=== PATIENT | male | born 2000 | race Caucasian/White ===

== ENCOUNTER 2025-03-02 20:00 | Emergency (ER) | payer OTHER, SELFPAY ==
[2025-03-02 20:01] VITALS: BP 150/82; PULSE 96; RESP 16; TEMP 36.6; O2SAT 100; BMI 28.3
--- OUTSIDE RECORDS SUMMARY | 2025-03-02 20:37 | XMS RPT_ITS | CCD ---
Author Organization [facility] Care Team Providers Care Office Communication Professor Name Role Phone Faizan GUSMAN.Evelyn PATHAK Primary Care Provider EVELYN SERRATO Attending Unavailable EVELYN SERRATO Primary Care Unavailable EVELYN SERRATO Attending Unavailable EVELYN SERRATO Primary Care Unavailable Papa Ace Attending Unavailable Care Physician, No Primary Primary Care Unava ilable Papa Ace Attending Unavailable Care Physician, No Primary Primary Care Unava ilable Care Physician, No Primary Primary Care Unava ilable Papa Ace Attending Unavailable Medications Current Medications Medication Drug Class(es) Dates Sig (Normalized) Sig (Original) escitalopram 20 mg oral tablet (3 sources) Serotonin Reuptake Inhibitor Start: 12-05-2022 End: 06-03-2023 take 1 tablet by mouth once daily escitalopram oxalate (LEXAPRO) 20 mg tablet Indications: Current mild episode of major depressive disorder without prior episode (HCC) , HALINA (generalized anxiety disorder) Take 1 tablet by mouth once daily. 30 tablet 5 12/05/2022 06/03/2023 Active Start: 10-31-2022 End: 04-29-2023 take 1 tablet by mouth once daily escitalopram oxalate (LEXAPRO) 10 mg tablet Indications: Current mild episode of major depressive disorder without prior episode (HCC) , HALINA (generalized anxiety disorder) Take 1 tablet by mouth once daily. 30 tablet 5 10/31/2022 12/05/2022 Discontinued Comment on above: Take 1 tablet by alexi th once daily. FLUoxetine 20 mg oral capsule (5 sources) Serotonin Reuptake Inhibitor Start: 08-23-2024 take 1 capsule by mouth once daily FLUoxetine (PROZAC) 20 mg capsule Indications: Current mild episode of major depressive disorder without prior episode (HCC) , HALINA (generalized anxiety disorder) Take 1 capsule by mouth once daily. 30 capsule 5 08/23/2024 Active Start: 05-13-2024 End: 08-23-2024 take 1 capsule by mouth once daily, then take 2 capsules by mouth once daily FLUoxetine (PROZAC) 10 mg capsule Indications: Current mild episode of major depressive disorder without prior episode (HCC) , HALINA (generalized anxiety disorder) Take 1 capsule by mouth once daily for 7 days, THEN 2 capsules once daily for 21 days. 49 capsule 1 06/30/2024 08/23/2024 Discontinued hydrOXYzine pamoate 25 mg oral capsule (2 sources) Antihistamine Start: 05-13-2024 End: 08-11-2024 take 1 capsule by mouth three times daily as needed for anxiety hydrOXYzine pamoate (VISTARIL) 25 mg capsule Indications: Current mild episode of major depressive disorder without prior episode (HCC) , HALINA (generalized anxiety disorder) Take 1 capsule by mouth three times a day as needed for anxiety. 45 capsule 2 05/13/2024 08/11/2024 Active lidocaine 40 mg/ml topical cream (1 source) Antiarrhythmic, Amide Local Anesthetic Start: 03-10-2023 End: 04-09-2023 lidocaine (LMX) 4 % cream Indications: Needle phobia Apply to affected area three times daily as needed. 5 g 0 03/10/2023 04/09/2023 Active Comment on above: Apply to affected ar ea three times daily as needed. Completed/Discontinued Medications Medication Drug Class(es) Dates Sig (Normalized) Sig (Original) ALPRAZolam 0.5 mg oral tablet (1 source) Benzodiazepine Start: 03-10-2023 End: 03-10-2023 ALPRAZolam (XANAX) 0.5 mg tablet Indications: Needle phobia Take 1 tablet by mouth one time only for 1 dose. Take 60 min prior to blood draw 1 tablet 0 03/10/2023 03/10/2023 Comment on above: Take 1 tablet by alexi one time only for 1 dose. Take 60 min prior to blood draw sertraline 25 mg oral tablet (1 source) Serotonin Reuptake Inhibitor Start: 01-30-2023 End: 03-10-2023 take 1 tablet by mouth once daily, then take 2 tablets by mouth once daily sertraline (ZOLOFT) 25 mg tablet Indications: Current mild episode of major depressive disorder without prior episode (HCC) , HALINA (generalized anxiety disorder) Take 1 tablet by mouth once daily for 7 days, THEN 2 tablets once daily for 21 days. 49 tablet 2 01/30/2023 03/10/2023 Discontinued (Side Effects) Comment on above: Take 1 tablet by alexi once daily for 7 days, THEN 2 tablets once daily for 21 days. Problems Problem Classification Problem Date Documented Da te Episodic/Chronic Anxiety disorders (16 sources) Generalized anxiety disorder; Translations: [Generalized anxiety disorder] Onset: 12-05-2022 Chronic Mood disorders (13 sources) Mild major depression, single episode; Translations: [Major depressive disorder, single episode, mild] Onset: 12-05-2022 Chronic Other screening for suspected conditions (not mental disorders or infectious disease) (1 source) Patient encounter status; Translations: [Encounter for screening for lipoid disorders] Episodic Other upper respiratory infections (1 source) Upper respiratory infection; Translations: [Acute upper respiratory infection, unspecified] Episodic Results Test Name Value Interpretation Reference Range Facil ity MR/BMS.BPon 11-15-2024 MR/BMS.BP [address], [address] [place] [address] OFFICE VISIT Date of Service: 11/15/24 MR#: [id number] Acct: [id number] Name: Norberto Schaeffer Rep #: [id number] : 2000 Provider: Dr. Papa Lee se, DO Age/Sex: 24/M Location: [facility].BP Status: Signed Intake BP Intake Visit Reasons: 2 M FU [facility] Medical History (Updated 11/15/24 @ 16:[address] Papa Ace DO) Tobacco use disorder Panic disorder HALINA (generalized anxiety disorder) HPI History of Present Illness History provided by: patient HPI: Norberto Schaeffer is a 24 year old male who presents today for follow up evaluation. Patient reports that he has been pretty good. Has been having been working on how much he has been drinking. Has r educed to drinking about once per week. Has split up with girlfriend 2-3 times since last appointment. Relationship is largely doing well at this point. Has not been utilizing hydroxyzine with good efficacy for when he is feeling more anxious. Sleep has been doing largely well. Does still feel like he has anxiety most days but is more manageable. Does ask about Wellbutrin as he is interested in quitting smoking which we discussed per the plan below. Review of Systems Constitutional Denies: fever(s), chills, change in weight or fatigue Eyes Denies: change in vision or blurry vision Ears, Nose, Mouth, Throat Denies: throat pain, neck pain or change in hearing Cardiovascular Denies: chest pain, palpitations or dyspnea Respiratory Reports: other (sharp chest pain occasionally from vaping); Denies: dyspnea, cough or wheezing Gastrointestinal Denies: abdominal pain, nausea, vomiting, diarrhea or constipation Genitourinary Denies: dysuria or urinary frequency Musculoskeletal Denies: back pain, neck pain, joint pain or muscle weakness Integumentary/Breast Denies: rash or new lesions Neurological Denies: headache(s), dizziness or confusion Endocrine Denies: fatigue or excessive sweating Hematologic/Lymphati c Denies: easy bruising or easy bleeding Allergic/Immunologic Denies: wheezing Exam Mental Status Exam - Psych Appearance adequately groomed Attitude pleasant Activity/Motor Behavior MSE activity/motor behavior finding no adventitious movements Speech regular rate, regular volume and regular prosody Mood OK Affect congruent Thought Process linear, logical and coherent Thought Content no delusions and no hallucinations Suicidal Ideation none Homicidal Ideation none Attention intact Concentration intact Sensorium/Orientatio n awake, alert and oriented x3 Memory/Cognition other (appropriate for stated age) Insight good Judgement good Assessment Plan Assessment Plan (1) HALINA (generalized anxiety disorder): Plan: - We will continue fluoxetine 20 mg every day we will consider titration at next appointment ??? Patient did have interest in utilizing Wellbutrin to help with mood symptoms as well as to help quit smoking. As anxiety has been improving with SSRI recommended that we try behavioral mechanisms first before adding a potentially stimulating medication and exacerbating anxiety symptoms. Patient is to update in the near future if still struggling to quit and we could consider utilizing smoking cessation medication (2) Panic disorder: Plan: - Has been doing better with use of hydroxyzine as needed (3) Tobacco use disorder: Plan: - interested in quitting vaping; see above regarding Wellbutrin Coding Level of Care Code Off vis,est,level 4 Diagnoses HALINA (generalized anxiety disorder) F41.1 Panic disorder F41.0 Tobacco use disorder F17.200 11/16/24 0627 Date Papa Ace DO Cosigner Signature: Date (if applicable) CC: Normal [facility] CNCOon 08-29-2024 CNCO Letter Text Normal [facility] CNPNon 08-29-2024 CNPN Telephone (BRIDGETT) NORBERTO SCHAEFFER ([id number]* 2 M Date Time Provider Department 08/29/24 EVELYN SERRATO During your visit today, we recorded the following information about you: Dolly Sutherland 08/29/2024 4:54 PM Signed No Show Documentation Norbertoron Schaeffer no showed for an appointment on 08/29/24 with Evelyn Serrato APRN.COMBINE INSPECTOR at 4:00 pm. He was scheduled for 2 mo f/u anxiety. I called and was unable to speak with the patient regarding his missed appointment. Norberto did not state the reason that he missed his appointment was because he did not answer phone call . Resources discussed/offered to patient: left message to reschedule No show determined to be fault of patient: Yes This is the patients first no show in the last 12 months. Patient was rescheduled for NA. Letter mailed : Yes Is this the Third or Fourth No Show? No Dolly Sutherland August 29, 2024 4:41 PM Allergies As of Date: 08/29/2024 (No Known Allergies) Date Reviewed: 07/03/2024 Reviewed by: Evelyn Serrato APRN.COMBINE INSPECTOR - Fully Assessed Reason for Visit: No Show [1558] Cmt: Pt no showed for appt on 08/29/24 Prescriptions as of 08/29/2024 - FLUoxetine (PROZAC) 20 mg capsule Take 1 capsule by mouth once daily. Problem List As Of Date 08/29/2024 Noted Resolved Current mild episode of major depressive disord*12/05/2022 HALINA (generalized anxiety disorder) [F41.1] 12/05/2022 Encounter Status:Closed by DOLLY SUTHERLAND VALARIE on 08/29/24 Normal [facility] MR/BMS.BPon 08-22-2024 MR/BMS.BP [address], [facility] [address] [place] [address] OFFICE VISIT Date of Service: 08/22/24 MR#: [id number] Acct: [id number] Name: Norberto Schaeffer Rep #: [id number] : 2000 Provider: Dr. Papa Lee se, DO Age/Sex: 24/M Location: [facility].BP Status: Signed Intake Vital Signs 08/22/24 16:54 Weight: 200 lb BP Intake Visit Reasons: anxiety Accompanied by: Self [facility] Medical History (Updated 08/22/24 @ 16:[address] Papa Ace DO) Panic disorder HALINA (generalized anxiety disorder) HPI History of Present Illness History provided by: patient Chief complaint: Anxiety HPI: Norberto Schaeffer is a 24 year old male who presents today for new patient evaluation. Patient presents today for a new patient evaluation secondary to depression and anxiety. Reports that he can't enjoy self out of house because he feels anxious. Can come along with physical symptoms like nausea and upset stomach. Can feel chest pain and feeling of impending doom intermittently. Currently taking 20 mg of fluoxetine and hydroxyzine 25 mg as needed. Does feel pretty sleepy when taking the hydroxyzine. Has been taking fluoxetine for about 4-5 months duration. Is coming up on 3 years with his current girlfriend. For the past 1.5 years feels like anxiety has been worsening. Reports to always having been a shy kid in school. Did recently have a breakup with his girlfriend, but have gotten back together. Admits to having panic attacks largely in social situations. Does drink fairly regularly. Sleep: tries to go to bed around 1030; up around 4-430 am for work Interest: able to find damien in things Guilt: denies Energy: fair Concentration: is good, did do poorly in school Appetite: is able to eat well Psychomotor: WNL Suicide: denies Memory: admits to some poor short term memory Anxiety: admits to having had high anxiety in the past Obsessions: admits to some intrusive thoughts Compulsions: denies explicit compulsive behaviors Tayler: denies any symptoms of tayler in the past PTSD: admits that he was bullied in school Father in December 2 years ago Psychosis: denies history of auditory or visual hallucinations, denies disorganized thoughts, denies disorganized speech Developmental History Developmental History: Siblings - admits to having a younger sister Born/Raised - grew up in [place] Education - [place], [place] Living Situation - lives in [place] Legal Issues - denies Employment - [employer]; services [employer] Psychiatric History Previous psychiatric treatment history: No Previous psychiatric diagnoses: anxiety,depression Previous psychiatric treatment programs: none Family Psychiatric History: Mom - possibly some form of mental health Dad - substance use disorder Suicidal Ideation Current: No Past: No History of suicide attempt: No Suicide Risk Assessment Suicide risk factors: depression Suicide protective factors: family support, social support and engaged in work Self Injurious Behavior Current: none Past: cutting Medication Trials Previous psychiatric medication trials: escitalopram - maybe felt worse Current/Previous Provider Psychiatrist: denies Therapist: saw a therapist at [facility] Other Substance Use History Nicotine- admits to vaping nicotine Alcohol- had been drinking too much per girlfriend, would drink nearly every day but has recently cut back, had been hiding how much he was drinking from girlfriend Marijuana- stopped smoking marijuana Stimulants- denies Opioids- denies Other- denies Review of Systems Constitutional Denies: fever(s), chills, change in weight or fatigue Eyes Denies: change in vision or blurry vision Ears, Nose, Mouth, Throat Denies: throat pain, neck pain or change in hearing Cardiovascular Denies: chest pain, palpitations or dyspnea Respiratory Reports: other (sharp chest pain occasionally from vaping); Denies: dyspnea, cough or wheezing Gastrointestinal Denies: abdominal pain, nausea, vomiting, diarrhea or constipation Genitourinary Denies: dysuria or urinary frequency Musculoskeletal Denies: back pain, neck pain, joint pain or muscle weakness Integumentary/Breast Denies: rash or new lesions Neurological Denies: headache(s), dizziness or confusion Endocrine Denies: fatigue or excessive sweating Hematologic/Lymphati c Denies: easy bruising or easy bleeding Allergic/Immunologic Denies: wheezing Exam Mental Status Exam - Psych Appearance unkempt Attitude pleasant Activity/Motor Behavior MSE activity/motor behavior finding no adventitious movements Speech regular rate, regular volume and regular prosody Mood anxious Affect congruent Thought Process linear, logical and coherent Thought Content no delusions and no hallucinations Suicidal Ideation (more content not included)... Normal [facility] 06-28-2024 [facility] Office Visit (BRIDGETT) OLESYA SCHAEFFERTA PEPPER ([id number]* 2 M Date Time Provider Department 06/28/24 4:00 PM EVELYN SERRATO During your visit today, we recorded the following information about you: Temperature Pulse Blood pressure Weight 98.6 degrees 80/minute 122/70 90.7 kg Height 1.88 m Evelyn Serrato APRN.ZO 07/03/2024 11:53 PM Signed Subjective [place] Kojojennyfer Schaeffer is a 24 year old male here today for follow-up depression, anxiety. I reviewed past medical, surgical, social, and family histories today and updated chart. Allergies, chronic medications, and supplements were also reviewed. HPI Having some conflict with relationship Has been with current partner for 3 years She is concerned about his drinking He drinks 1-2 times throughout the work week Drinks 11 % wine cooler 3-4 in one night Will be in a deep sleep He has hid empty containers from partner They have pets and he will leave dog out after he's passed out before He is motivated to quit alcohol completely He realizes he should not drink alcohol while on the depression medication Notices slower thought process after he's been drinking He is still going to work and getting work done He drinks to relieve stress Hasn't been using marijuana as much lately Currently on Prozac 20 mg once a day - feels like its helping overall, especially with the depression Does make him sleepy Takes it around bedtime Not currently in counseling but is thinking about starting it again PAST MEDICAL HISTORY Diagnosis Date Childhood asthma Depression Generalized anxiety disorder Syncope PAST SURGICAL HISTORY Procedure Laterality Date NONE ALLERGIES Patient has no known allergies. MEDICATIONS FLUoxetine (PROZAC) 10 mg capsule Take 1 capsule by mouth once daily for 7 days, THEN 2 capsules once daily for 21 days. hydrOXYzine pamoate (VISTARIL) 25 mg capsule Take 1 capsule by mouth three times a day as needed for anxiety. FAMILY HISTORY Problem Relation Age of Onset Diabetes Mother Drug abuse Father No Known Problems Sister Social History Tobacco Use Smoking status: Every Day Types: Cigarettes Smokeless tobacco: Never Substance Use Topics Alcohol use: Yes Comment: occ. Drug use: Yes Types: Marijuana Review of Systems Constitutional: Negative for appetite change, chills, fatigue, fever and unexpected weight change. HENT: Negative for congestion, ear pain, rhinorrhea and sore throat. Eyes: Negative for pain, discharge, itching and visual disturbance. Respiratory: Negative for cough, shortness of breath and wheezing. Cardiovascular: Negative for chest pain, palpitations and leg swelling. Gastrointestinal: Negative for abdominal pain, constipation, diarrhea, nausea and vomiting. Genitourinary: Negative for difficulty urinating. Musculoskeletal: Negative for arthralgias. Skin: Negative for rash. Neurological: Negative for dizziness, tremors, weakness and headaches. Psychiatric/Behavior al: Positive for dysphoric mood. Negative for sleep disturbance. The patient is nervous/anxious. Objective BP 122/70 Pulse 80 Temp 98.6 Ht 6' 2 (1.88m) Wt 200 lb (90.7kg) SpO2 99% BMI 25.67 kg/(m2). Physical Exam HENT: Head: Normocephalic and atraumatic. Eyes: Conjunctiva/sclera: Conjunctivae normal. Pupils: Pupils are equal, round, and reactive to light. Cardiovascular: Rate and Rhythm: Normal rate and regular rhythm. Pulses: Normal pulses. Heart sounds: Normal heart sounds. Pulmonary: Effort: Pulmonary effort is normal. Breath sounds: Normal breath sounds. Musculoskeletal: Cervical back: Normal range of motion and neck supple. Lymphadenopathy: Cervical: No cervical adenopathy. Skin: General: Skin is warm and dry. Neurological: General: No focal deficit present. Mental Status: He is alert and oriented to person, place, and time. Cranial Nerves: No cranial nerve deficit. Sensory: Sensation is intact. Motor: Motor function is intact. Coordination: Coordination is intact. Psychiatric: Attention and Perception: Attention and perception normal. Mood and Affect: Affect normal. Mood is depressed. Mood is not anxious. Affect is not labile or inappropriate. Speech: Speech normal. Behavior: Behavior normal. Behavior is not agitated. Thought Content: Thought content normal. Thought content does not include suicidal ideation. Cognition and Memory: Cognition normal. Judgment: Judgment normal. Judgment is not impulsive. 03/11/2023 05/17/2024 06/28/2024 PHQ-9 Score 5 6 6 (0-4) minimal depression, (5-9) mild depression, (10-14) moderate depression, (15-19) moderately severe depression, (20-27) severe depression 12/05/2022 03/11/2023 06/28/2024 HALINA - 7 SCORES Score 8 13 10 (0-4) minimal anxiety, (5-9) mild anxiety, (10-14) moderate anxiety, (15- (more content not included)... [facility] Office Visit (BRIDGETT) NORBERTO SCHAEFFER ([id number]* 2 M Date Time Provider Department 05/13/24 4:40 PM EVELYN SERRATO During your visit today, we recorded the following information about you: Temperature Pulse Blood pressure Weight 98 degrees 71/minute 126/76 92.1 kg Height 1.88 m Evelyn Serrato, ADOPTION WORKER.COMBINE INSPECTOR 05/16/2024 11:03 PM Signed Subjective Norberto Pepper Schaeffer is a 24 year old male here today for depression follow-up. I reviewed past medical, surgical, social, and family histories today and updated chart. Allergies, chronic medications, and supplements were also reviewed. HPI Anxiety and depression symptoms have worsened since his last visit Yesterday was driving to work and felt so dizzy thought he would pass out Harder to go out and do things Hard time being public and socializing with other Having panic attacks - chest gets heavy, SOB, hot, uneasy feeling On occasion Comes and goes Comes out of nowhere a lot of times Sleep - sleeping okay, not waking up at night, falls asleep okay This past week went to bed at 9:30, usually goes to bed at 10:30 [place] like didn't rest at all - usually happens if he goes to bed earlier He was on medication in the past - lexapro, then zoloft Made him feel slightly worse over time PAST MEDICAL HISTORY No date: Childhood asthma No date: Depression No date: Generalized anxiety disorder No date: Syncope PAST SURGICAL HISTORY No date: NONE ALLERGIES Patient has no known allergies. MEDICATIONS No prescriptions on file. FAMILY HISTORY Problem Relation Age of Onset Diabetes Mother Drug abuse Father No Known Problems Sister Social History Tobacco Use Smoking status: Every Day Types: Cigarettes Smokeless tobacco: Never Substance Use Topics Alcohol use: Yes Comment: occ. Drug use: Yes Types: Marijuana Review of Systems Constitutional: Negative for appetite change, chills, fatigue, fever and unexpected weight change. HENT: Negative for congestion, ear pain, rhinorrhea and sore throat. Eyes: Negative for pain, discharge, itching and visual disturbance. Respiratory: Negative for cough, shortness of breath and wheezing. Cardiovascular: Negative for chest pain, palpitations and leg swelling. Gastrointestinal: Negative for abdominal pain, constipation, diarrhea, nausea and vomiting. Genitourinary: Negative for difficulty urinating. Musculoskeletal: Negative for arthralgias. Skin: Negative for rash. Neurological: Negative for dizziness, tremors, weakness and headaches. Psychiatric/Behavior al: Positive for dysphoric mood. Negative for sleep disturbance. The patient is nervous/anxious. Objective BP 126/76 Pulse 71 Temp 98 Ht 6' 2 (1.88m) Wt 203 lb (92.1kg) SpO2 10% BMI 26.05 kg/(m2). Physical Exam HENT: Head: Normocephalic and atraumatic. Eyes: Conjunctiva/sclera: Conjunctivae normal. Pupils: Pupils are equal, round, and reactive to light. Cardiovascular: Rate and Rhythm: Normal rate and regular rhythm. Pulses: Normal pulses. Heart sounds: Normal heart sounds. No murmur heard. Pulmonary: Effort: Pulmonary effort is normal. No respiratory distress. Breath sounds: Normal breath sounds. Abdominal: General: Bowel sounds are normal. There is no distension. Palpations: Abdomen is soft. There is no mass. Tenderness: There is no abdominal tenderness. Musculoskeletal: General: No tenderness. Normal range of motion. Cervical back: Normal range of motion and neck supple. Lymphadenopathy: Cervical: No cervical adenopathy. Skin: General: Skin is warm and dry. Findings: No rash. Neurological: General: No focal deficit present. Mental Status: He is alert and oriented to person, place, and time. Cranial Nerves: No cranial nerve deficit. Sensory: Sensation is intact. Motor: Motor function is intact. Coordination: Coordination is intact. Coordination normal. Deep Tendon Reflexes: Reflexes are normal and symmetric. Psychiatric: Attention and Perception: Attention and perception normal. Mood and Affect: Affect normal. Mood is depressed. Mood is not anxious. Affect is not labile or inappropriate. Speech: Speech normal. Behavior: Behavior normal. Behavior is not agitated. Thought Content: Thought content normal. Thought content does not include suicidal ideation. Cognition and Memory: Cognition normal. Judgment: Judgment normal. Judgment is not impulsive. 12/05/2022 01/30/2023 03/11/2023 PHQ-9 Score 7 9 5 (0-4) minimal depression, (5-9) mild depression, (10-14) moderate depression, (15-19) moderately severe depression, (20-27) severe depression 10/31/2022 12/05/2022 03/11/2023 HALINA - 7 SCORES Score 14 8 13 (0-4) minimal anxiety, (5-9) mild anxiety, (10-14) moderate anxiety, (15-21) severe anxiety ASSESSMENT/PLAN: 1. Current mild episode of major d (more content not included)... Normal [facility] TONIE SARS-CoV-2 (COVID-19) RT-PCR, Qualitativeon 08-08-2020 SARS-CoV-2 (COVID-19) RT-PCR, Qualitative [id number] [facility] Comment on above: Order Comment: Is th is a pre-procedure screening test?->No Is this specimen being sent to an external lab?->No [id number]&Nasopharyngeal^\S\^Nose (source)&Nose (source) Performed By: #### E LRG2 #### [place] [address] [facility] SARS-CoV-2 (COVID-19) RT-PCR, Qualitativeon 08-06-2020 Date of Symptom Onset [id number] [facility] Comment on above: Order Comment: Is th is a pre-procedure screening test?->No Is this specimen being sent to an external lab?->No [id number]&Nasopharyngeal^\S\^Nose (source)&Nose (source) Performed By: #### E LRG2 #### [place] [address] Employed in Healthcare setting? No [facility] Comment on above: Order Comment: Is th is a pre-procedure screening test?->No Is this specimen being sent to an external lab?->No [id number]&Nasopharyngeal^\S\^Nose (source)&Nose (source) Performed By: #### E LRG2 #### [place] [address] First COVID-19 test? Yes [facility] Comment on above: Order Comment: Is th is a pre-procedure screening test?->No Is this specimen being sent to an external lab?->No [id number]&Nasopharyngeal^\S\^Nose (source)&Nose (source) Performed By: #### E LRG2 #### [place] [address] Hospitalized? No [facility] Comment on above: Order Comment: Is th is a pre-procedure screening test?->No Is this specimen being sent to an external lab?->No [id number]&Nasopharyngeal^\S\^Nose (source)&Nose (source) Performed By: #### E LRG2 #### [place] [address] ICU? No Normal [facility] Comment on above: Order Comment: Is th is a pre-procedure screening test?->No Is this specimen being sent to an external lab?->No [id number]&Nasopharyngeal^\S\^Nose (source)&Nose (source) Performed By: #### E LRG2 #### [place] [address] Resident in congrega care setting? No Normal [facility] Comment on above: Order Comment: Is th is a pre-procedure screening test?->No Is this specimen being sent to an external lab?->No [id number]&Nasopharyngeal^\S\^Nose (source)&Nose (source) Performed By: #### E LRG2 #### [place] [address] Symptomatic as defined by CDC? Yes Normal [facility] Comment on above: Order Comment: Is th is a pre-procedure screening test?->No Is this specimen being sent to an external lab?->No [id number]&Nasopharyngeal^\S\^Nose (source)&Nose (source) Performed By: #### E LRG2 #### [place] [address] Progress Noteon 08-06-2020 Computer Network Specialist Authentication Interface Message Text Patient ID: Norberto Schaeffer is a 20 y.o. male. His chief complaint(s) include: Nasal Congestion (congestion, sneezing x few days- needs note for work) Assessment 1. Cough 2. Rhinorrhea Plan Norberto was seen today for nasal congestion. Diagnoses and all orders for this visit: Cough - SARS-CoV-2 (COVID-19) RT-PCR, Qual. Rhinorrhea - SARS-CoV-2 (COVID-19) RT-PCR, Qual. COVID test sent. Will notify patient of the COVID-19 result when available. Norberto's phone number is [phone]. Quarantine until the test is back. Continue home care. Call with concerns or if more ill. Return for Well Visit and as needed. Subjective HPI Comments: Got sick 6 days ago. The next day he felt worse so called off from work. Works at [employer]. Went back to work Thurs /Fri and still felt a little sick but not bad. Past couple days feeling progressively better. Now feels great today but needs a doctor's note or COVID test to return to work. 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 Symptoms were stuffy nose, some sneezing, mild cough, SMALL, stomach ache. No N/V no fever. No diarrhea. No known exposure to COVID-19. No travel. Did have some loss of taste or smell three days ago, only for one day and now seems normal again. No ill exposures. He is unaccompanied. Nasal Congestion Primary Care Review of Systems Objective Vital Signs 08/06/20 1436 Temp: 36.2 C (97.1 F) TempSrc: Temporal Weight: 84.2 kg There is no height or weight on file to calculate BMI. Physical Exam Constitutional: He appears well. He is active. No distress. HENT: Head: Atraumatic. Ears: Right Ear: Tympanic membrane and external ear normal. Left Ear: Tympanic membrane and external ear normal. Nose: Nose normal. No nasal discharge. Mouth/Throat: Mucous membranes are moist. No pharynx erythema. No tonsillar exudate. Oropharynx is clear. Eyes: Conjunctivae are normal. Neck: Neck supple. Cardiovascular: Normal rate, regular rhythm, S1 normal and S2 normal. Heart murmur not heard. Pulmonary/Chest: Breath sounds normal. No respiratory distress. He has no wheezes. He has no rhonchi. He has no rales. Abdominal: Soft. Bowel sounds are normal. He exhibits no distension and no mass. There is no hepatosplenomegaly. There is no abdominal tenderness. Musculoskeletal: Cervical back: Neck supple. Lymphadenopathy: No right anterior cervical adenopathy present. No left anterior cervical adenopathy present. Neurological: He is alert. Skin: Skin is warm. Skin is not pale. Findings: No rash. Vitals reviewed: Temperature 36.2 C (97.1 F), temperature source Temporal, weight 84.2 kg. Normal [facility] Progress Noteon 09-09-2019 Computer Network Specialist Authentication Interface Message Text Norberto Schaeffer is a 19 y.o. male patient. Behavioral/Emotional Assessment w Score - PHQ-9 Performed by: Orin Lindo MD Authorized by: Orin Lindo MD PHQ-9 See PHQ9 Flowsheet Feeling down, depressed, irritable or hopeless: Not at all Little interest or pleasure in doing things: Not at all Trouble falling or staying sleep, or sleeping too much: Not at all Poor appetite, weight loss, or overeating: Not at all Feeling tired or having little energy: Not at all Feeling bad about yourself - or feeling that you are a failure, or have let yourself or your family down: Not at all Trouble concentrating on things, like school work, reading or watching TV: Several days Moving or speaking so slowly that other people could have noticed. Or the opposite - being so fidgety or restless that you were moving around a lot more than usual: Not at all Thoughts that you would be better off , or of hurting yourself in some way: Not at all In the past year have you felt depressed or sad most days, even if you felt OK sometimes?: No If you are experiencing any of the problems on this form, how difficult have these problems made it for you to do your work, take care of things at home or get along with other people?: Not difficult at all Has there been a time in the past month when you have had serious thoughts about ending your life?: No Have you ever, in your whole life, tried to kill yourself or made a suicide attempt?: No PHQ-9 Total Score: 1 Total Score Value: 0-4 No or Minimal Electronically signed by: Orin Lindo MD Normal [facility] Computer Network Specialist Authentication Interface Message Text Patient ID: oNrberto Schaeffer is a 19 y.o. male. His chief complaint(s) include: 19 YEAR WELL CHILD Assessment 1. Routine general medical examination at a health care facility 2. Acne vulgaris Plan Norberto was seen today for 19 year well child. Diagnoses and all orders for this visit: Routine general medical examination at a health care facility - Behavioral/Emotional Assessment w Score - PHQ-9 Acne vulgaris - benzoyl peroxide (BENZOYL PEROXIDE WASH) 5 % external liquid; Wash affected area twice daily. Return in about 1 year (around 09/09/2020) for well check. Normal growth and development. Vaccines UTD except flu and Men B, declined both. PHQ9 score 1. Reviewed healthy diet and exercise. Sexually active, STD screening offered and declined. Declined genital exam. Discussed briefly transition to adult care. Rx sent for acne wash and reviewed use and side effects. Subjective He is unaccompanied. 19 YEAR WELL CHILD Home: Norberto is permitted and able to make independent decisions. Norberto has no home risk identified. Education: Norberto is in 12th grade and is adjusting adequately. ([facility] and [facility] [employer] (welding lab), struggling with grades this year, but passed second quarter. 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 Eating: Norberto eats regular meals including fruits and vegetables. 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 Norberto performs less than 1 hour of physical activity daily (wants to start working out at [employer]). Drugs: Norberto does not use tobacco, does not use drugs, does not use alcohol and does not vape. Safety: Norberto has peer relationships free from violence and uses seat belt. Norberto does not use phone/text while driving. Sex: The patient has a sexual partner. The patient is interested in females. The patient has had sex. The patient states that their partner and them engage in vaginal sex. The patient has 1 current sexual partners. The patient has had 1 lifetime sexual partners. Typically, the patient uses condoms as current contraceptive method. The patient states that their last sexual encounter was 1 year ago. Condom used at last sexual encounter. The patient has not had an STD. The patient's partner has had an STD: no. STD screening offered and declined. Suicidality: Norberto has no suicidal ideation, has no homicidal ideation and has no mental health risk identified. Output Urine and Stool Pattern: Urine and Stool Pattern: Normal stool pattern, normal urine pattern. Sleep Sleeping Difficulty: no difficulty sleeping Hours of sleep at a time: 7 Teen Anticipatory Guidance The following anticipatory guidance was reviewed during the visit: Nutrition: limit junk food/fast food and soft drinks. Health: age appropriate sleep habits, self testicular exam, how to resist peer pressure to smoke, drink, use drugs, don't use tobacco/ alcohol/ drugs/ diet pills/ inhalants, contraception/practi ce safe sex/ use condoms, be responsible for attendance/ homework/ course selection and driving risks. Screenings Hyperlipidemia Concerns: Negative Hyperlipidemia Screen Concerns: no Hyperlipidemia Risk Factors and no BMI >95% Primary Care Review of Systems Objective Vital Signs 09/09/19 0902 BP: 117/58 Pulse: 71 Weight: 77.1 kg Height: 183.6 cm Body mass index is 22.87 kg/m . Physical Exam Constitutional: He appears well. He is active. No distress. HENT: Head: Atraumatic. Right Ear: Tympanic membrane and external ear normal. Left Ear: Tympanic membrane and external ear normal. Nose: Nose normal. Mouth/Throat: Mucous membranes are moist. Dentition is normal. Oropharynx is clear. Eyes: Conjunctivae and EOM are normal. No strabismus. Pupils are equal, round, and reactive to light. Neck: Normal range of motion. Neck supple. Thyroid normal. No neck adenopathy. Cardiovascular: Normal rate, regular rhythm, S1 normal and S2 normal. Pulses are palpable. Heart murmur not heard. Pulmonary/Chest: Breath sounds normal. No respiratory distress. Exhibits no deformity. Abdominal: Soft. Bowel sounds are normal. He exhibits no distension and no mass. There is no hepatosplenomegaly. There is no tenderness. Genitourinary: did not examine. Genitourinary Comments: Recommended genital exam and fabric worker foreman, patient declined genital exam today. Declines rashes, sores, testicular changes or lumps/bumps. Discussed regular self-testicular exams. Musculoskeletal: Normal range of motion. Back: He exhibits no scoliosis. Neurological: He is alert. He has normal strength. He exhibits normal muscle tone. Gait normal. Skin: Burn (healing burn from welding injury on R side of neck) noted. No rash noted. There is no pallor. Closed comodones (scattered on back and chest, mild on face/forehead). Skin is warm. Normal [facility] Vital Signs Date Time Vital Sign Value Performing Clinician Henry montoya 06-28-2024 15:54-0400 Body height 188 cm Evelyn Trill ADOPTION WORKER.COMBINE INSPECTOR Work Phone: [facility] 06-28-2024 15:54-0400 Body mass index (BMI) [Ratio] 25.68 kg/m2 Evelyn Trijordyn ADOPTION WORKER.COMBINE INSPECTOR Work Phone: [facility] 06-28-2024 15:54-0400 Body temperature 98.6 [degF] Evelyn Trill ADOPTION WORKER.COMBINE INSPECTOR Work Phone: [facility] 06-28-2024 15:54-0400 Body weight 90.72 kg Evelyn Trijordyn ADOPTION WORKER.COMBINE INSPECTOR Work Phone: [facility] 06-28-2024 15:54-0400 Diastolic blood pressure 70 mm[Hg] Evelyn Serrato ADOPTION WORKER.COMBINE INSPECTOR Work Phone: [facility] 06-28-2024 15:54-0400 Heart rate 80 /min Evelyn Serrato ADOPTION WORKER.COMBINE INSPECTOR Work Phone: [facility] 06-28-2024 15:54-0400 SaO2% (BldA) [Mass fraction] 99 % Evelyn Serrato ADOPTION WORKER.COMBINE INSPECTOR Work Phone: [facility] 06-28-2024 15:54-0400 Systolic blood pressure 122 mm[Hg] Evelyn Trijordyn ADOPTION WORKER.COMBINE INSPECTOR Work Phone: [facility] 05-13-2024 16:34-0400 Body height 188 cm Evelyn Serrato ADOPTION WORKER.COMBINE INSPECTOR Work Phone: [facility] 05-13-2024 16:34-0400 Body mass index (BMI) [Ratio] 26.06 kg/m2 Evelyn Trill ADOPTION WORKER.COMBINE INSPECTOR Work Phone: [facility] 05-13-2024 16:34-0400 Body temperature 98.01 [degF] Evelyn Trill ADOPTION WORKER.COMBINE INSPECTOR Work Phone: [facility] 05-13-2024 16:34-0400 Body weight 92.08 kg Evelyn Trill ADOPTION WORKER.COMBINE INSPECTOR Work Phone: [facility] 05-13-2024 16:34-0400 Diastolic blood pressure 76 mm[Hg] Evelyn Trill ADOPTION WORKER.COMBINE INSPECTOR Work Phone: [facility] 05-13-2024 16:34-0400 Heart rate 71 /min Evelyn Trill ADOPTION WORKER.COMBINE INSPECTOR Work Phone: [facility] 05-13-2024 16:34-0400 SaO2% (BldA) [Mass fraction] 10 % Evelyn Trill ADOPTION WORKER.COMBINE INSPECTOR Work Phone: [facility] 05-13-2024 16:34-0400 Systolic blood pressure 126 mm[Hg] Evelyn Trill ADOPTION WORKER.COMBINE INSPECTOR Work Phone: [facility] 03-10-2023 16:50-0400 Body height 188 cm Evelyn Trill ADOPTION WORKER.COMBINE INSPECTOR Work Phone: [facility] 03-10-2023 16:50-0400 Body temperature 98.01 [degF] Evelyn Trill ADOPTION WORKER.COMBINE INSPECTOR Work Phone: [facility] 03-10-2023 16:50-0400 Body weight 83.46 kg Evelyn Trill ADOPTION WORKER.COMBINE INSPECTOR Work Phone: [facility] 03-10-2023 16:50-0400 Diastolic blood pressure 60 mm[Hg] Evelyn Trill ADOPTION WORKER.COMBINE INSPECTOR Work Phone: [facility] 03-10-2023 16:50-0400 Heart rate 63 /min Evelyn Trill ADOPTION WORKER.COMBINE INSPECTOR Work Phone: [facility] 03-10-2023 16:50-0400 Respiratory rate 19 /min Evelyn Trill ADOPTION WORKER.COMBINE INSPECTOR Work Phone: [facility] 03-10-2023 16:50-0400 SaO2% (BldA) [Mass fraction] 99 % Evelyn Trill ADOPTION WORKER.COMBINE INSPECTOR Work Phone: [facility] 03-10-2023 16:50-0400 Systolic blood pressure 112 mm[Hg] Evelyn Trill ADOPTION WORKER.COMBINE INSPECTOR Work Phone: [facility] 12-05-2022 15:52-0400 Body height 188 cm Evelyn Trill ADOPTION WORKER.COMBINE INSPECTOR Work Phone: [facility] 12-05-2022 15:52-0400 Body temperature 98.01 [degF] Evelyn Trill ADOPTION WORKER.COMBINE INSPECTOR Work Phone: [facility] 12-05-2022 15:52-0400 Body weight 80.29 kg Evelyn Trill ADOPTION WORKER.COMBINE INSPECTOR Work Phone: [facility] 12-05-2022 15:52-0400 Diastolic blood pressure 60 mm[Hg] Evelyn Trill ADOPTION WORKER.COMBINE INSPECTOR Work Phone: [facility] 12-05-2022 15:52-0400 Heart rate 65 /min Evelyn Trill ADOPTION WORKER.COMBINE INSPECTOR Work Phone: [facility] 12-05-2022 15:52-0400 SaO2% (BldA) [Mass fraction] 99 % Evelyn Trill ADOPTION WORKER.COMBINE INSPECTOR Work Phone: [facility] 12-05-2022 15:52-0400 Systolic blood pressure 110 mm[Hg] Evelyn Trill ADOPTION WORKER.COMBINE INSPECTOR Work Phone: [facility] 10-31-2022 15:01-0500 Body height 188 cm Evelyn Trill ADOPTION WORKER.COMBINE INSPECTOR Work Phone: [facility] 10-31-2022 15:01-0500 Body temperature 98.49 [degF] Evelyn Trill ADOPTION WORKER.COMBINE INSPECTOR Work Phone: [facility] 10-31-2022 15:01-0500 Body weight 78.93 kg Evelyn Trill ADOPTION WORKER.COMBINE INSPECTOR Work Phone: [facility] 10-31-2022 15:01-0500 Diastolic blood pressure 70 mm[Hg] Evelyn Trill ADOPTION WORKER.COMBINE INSPECTOR Work Phone: [facility] 10-31-2022 15:01-0500 Heart rate 80 /min Evelyn Trill ADOPTION WORKER.COMBINE INSPECTOR Work Phone: [facility] 10-31-2022 15:01-0500 SaO2% (BldA) [Mass fraction] 98 % Evelyn Serrato APRN.CNP Work Phone: [facility] 10-31-2022 15:01-0500 Systolic blood pressure 120 mm[Hg] Evelyn Serrato APRN.CNP Work Phone: [facility] Encounters Encounter Date Encounter Type Care Provider Facility Start: 02-15-2025 ambulatory No Primary Car e Physician Facility:[facility] Start: 11-15-2024 End: 11-15-2024 ambulatory Papa L Seese Facility:[facility] Start: 08-29-2024 End: 08-29-2024 Telephone encounter Evelyn Serrato APRN.CNP Work Phone: [facility] Comment on above: No Show (Pt no showe d for appt on 08/29/24) Start: 08-22-2024 End: 08-22-2024 ambulatory Papa L Seese Facility:[facility] Start: 08-22-2024 End: 08-23-2024 Refill Evelyn Serrato APRN.CNP Work Phone: [facility] Comment on above: Refill Request Start: 06-28-2024 End: 06-28-2024 Patient encounter procedure Evelyn Serrato APRN.COMBINE INSPECTOR Work Phone: [facility] Comment on above: Current mild episode of major depressive disorder without prior episode (HCC) (Primary Dx); HALINA (generalized anxiety disorder) Start: 06-28-2024 End: 06-28-2024 ambulatory EVELYN SERRATO Facility:[facility] Start: 05-13-2024 End: 05-13-2024 Patient encounter procedure Evelyn Serrato APRN.COMBINE INSPECTOR Work Phone: [facility] Comment on above: Current mild episode of major depressive disorder without prior episode (HCC) (Primary Dx); HALINA (generalized anxiety disorder) Start: 05-13-2024 End: 05-13-2024 ambulatory EVELYN SERRATO Facility:[facility] Start: 03-10-2023 End: 03-10-2023 Patient encounter procedure Evelyn Serrato APRN.COMBINE INSPECTOR Work Phone: [facility] Comment on above: Current mild episode of major depressive disorder without prior episode (HCC) (Primary Dx); HALINA (generalized anxiety disorder); Screening for lipid disorders; Needle phobia Start: 12-05-2022 End: 12-05-2022 Patient encounter procedure Evelyn Serrato APRN.COMBINE INSPECTOR Work Phone: [facility] Comment on above: Current mild episode of major depressive disorder without prior episode (HCC) (Primary Dx); HALINA (generalized anxiety disorder) Start: 10-31-2022 End: 10-31-2022 Patient encounter procedure Evelyn Serrato APRN.COMBINE INSPECTOR Work Phone: [facility] Comment on above: Current mild episode of major depressive disorder without prior episode (HCC) (Primary Dx); HALINA (generalized anxiety disorder); Upper respiratory tract infection, unspecified type Plan of Treatment Date Care Activity Detail Author Start: 06-28-2025 Covid-19 Vaccine ( season) Covid-19 Vaccine ( season) [facility] Comment on above: Postponed from 05/15 (Declined at this time) Start: 05-13-2025 Meningococcal B Vacc ine: Consider Based On Risk (1 of 2 - Patient Seeks Protection) Meningococcal B Vaccine: Consider Based On Risk (1 of 2 - Patient Seeks Protection) [facility] Comment on above: Postponed from 04/20 (Declined at this time) Start: 05-13-2025 Pneumococcal vaccination Pneum ococcal Vaccine (1 of 2 - PCV) [facility] Comment on above: Postponed from 04/20 (Declined at this time) Postponed from 04/20 (Declined at this time) Start: 05-13-2025 Urine microalbumin profile DTaP,Tdap,Td Vaccine (7 - Td or Tdap) [facility] Comment on above: Postponed from 04/26 (Declined at this time) Start: 03-13-2025 Influenza vaccination Influenza Vacc ine (#1) [facility] Comment on above: Postponed from 05/15 (Declined at this time) Start: 08-29-2024 End: 08-29-2024 Patient encounter procedure 08/29/2024 4:00 PM EST Office Visit [facility] [address] [place] [address] Evelyn Serrato ADOPTION WORKER.COMBINE INSPECTOR [address], [place] [id number] 2 mth f/u depression and anxiety [facility] Comment on above: 2 mth f/u depression and anxiety Start: 06-28-2024 End: 06-28-2024 Patient encounter procedure 06/28/2024 4:00 PM EDT Office Visit [facility] [address] [place] [address] Evelyn Serrato, ADOPTION WORKER.COMBINE INSPECTOR [address], [place] [phone] for Depression, anxiety. [facility] Comment on above: for Depression, anxi ety. Start: 05-15-2024 Covid-19 Vaccine ( season) Covid-19 Vaccine ( season) [facility] Start: 05-15-2024 Influenza vaccination Influenza Vacc ine (#1) [facility] Start: 10-31-2023 COVID-19 VACCINE (#1) COVID-19 VACCI NE (#1) [facility] Comment on above: Postponed from 10/21 (Declined at this time) Start: 05-15-2023 Influenza vaccination INFLUENZ A (Season Ended) [facility] Start: 03-10-2023 End: 10-06-2023 CBC panel - Blood by Automated count CBC Lab Routine Current mild episode of major depressive disorder without prior episode (HCC) HALINA (generalized anxiety disorder) Expected: 03/10/2023, Expires: 10/06/2023 [facility] Work Phone: Comment on above: Expected: 03/10/2023 , Expires: 10/06/2023 Start: 03-10-2023 End: 10-06-2023 Comprehensive metabolic 2000 panel - Serum or Plasma COMP METABOLIC PANEL Lab Routine Current mild episode of major depressive disorder without prior episode (HCC) HALINA (generalized anxiety disorder) Expected: 03/10/2023, Expires: 10/06/2023 [facility] Work Phone: Comment on above: Expected: 03/10/2023 , Expires: 10/06/2023 Start: 03-10-2023 End: 10-06-2023 Lipid 1996 panel - Serum or Plasma LIPID PANEL BASIC Lab Routine Screening for lipid disorders Expected: 03/10/2023, Expires: 10/06/2023 [facility] Work Phone: Comment on above: Expected: 03/10/2023 , Expires: 10/06/2023 Start: 03-10-2023 End: 10-06-2023 Thyrotropin [Units/volume] in Serum or Plasma TSH BLD Lab Routine Current mild episode of major depressive disorder without prior episode (HCC) HALINA (generalized anxiety disorder) Expected: 03/10/2023, Expires: 10/06/2023 [facility] Work Phone: Comment on above: Expected: 03/10/2023 , Expires: 10/06/2023 Start: 10-31-2022 End: 12-31-2022 25-hydroxyvitamin D3 [Mass/volume] in Serum or Plasma VITAMIN D 25 HYDROXY Lab Routine Current mild episode of major depressive disorder without prior episode (HCC) Expected: 10/31/2022, Expires: 12/31/2022 [facility] Work Phone: Comment on above: Expected: 10/31/2022 , Expires: 12/31/2022 Start: 10-31-2022 End: 12-31-2022 CBC panel - Blood by Automated count CBC Lab Routine Current mild episode of major depressive disorder without prior episode (HCC) HALINA (generalized anxiety disorder) Expected: 10/31/2022, Expires: 12/31/2022 [facility] Work Phone: Comment on above: Expected: 10/31/2022 , Expires: 12/31/2022 Start: 10-31-2022 End: 12-31-2022 Comprehensive metabolic 2000 panel - Serum or Plasma COMP METABOLIC PANEL Lab Routine Current mild episode of major depressive disorder without prior episode (HCC) HALINA (generalized anxiety disorder) Expected: 10/31/2022, Expires: 12/31/2022 [facility] Work Phone: Comment on above: Expected: 10/31/2022 , Expires: 12/31/2022 Start: 10-31-2022 End: 12-31-2022 Thyrotropin [Units/volume] in Serum or Plasma TSH BLD Lab Routine Current mild episode of major depressive disorder without prior episode (HCC) HALINA (generalized anxiety disorder) Expected: 10/31/2022, Expires: 12/31/2022 [facility] Work Phone: Comment on above: Expected: 10/31/2022 , Expires: 12/31/2022 Start: 05-15-2022 Influenza vaccination INFLUENZA (#1) [facility] Start: 2020 Urine microalbumin profile DTAP,TDAP,TD (1 - Tdap) [facility] Start: 2015 PEDS TO ADULT TRANSI TION ANNUAL ASSESSMENT PEDS TO ADULT TRANSITION ANNUAL ASSESSMENT [facility] Start: 2013 PEDS TO ADULT TRANSI TION INITIAL DISCUSSION PEDS TO ADULT TRANSITION INITIAL DISCUSSION [facility] Start: 2012 HPV VACCINE (1 - Mal e 2-dose series) HPV VACCINE (1 - Male 2-dose series) [facility] Start: 2011 MENINGOCOCCAL B: Consider based on risk (1 of 2 - Risk Bexsero 2-dose series) MENINGOCOCCAL B: Consider based on risk (1 of 2 - Risk Bexsero 2-dose series) [facility] Start: 2010 HPV VACCINE (1 - Mal e 2-dose series) HPV VACCINE (1 - Male 2-dose series) [facility] Start: 2007 PNEUMOCOCCAL (1 - PCV) PNEUMOCOCCAL (1 - PCV) [facility] Start: 2001 HEPATITIS B (1 of 3 - 3-dose series) HEPATITIS B (1 of 3 - 3-dose series) [facility] Payers Date Payer Category Payer Self-pay 2024 Unknown [employer] PPO [id number] 2024-Present [phone] [address] [place] [address] PPO [id number] 2024 Unknown [id number] 2019 Medicaid [id number] Unknown [id number] Unknown [id number] Unknown [id number] Social History Date Type Detail Facility Start: [facility]-31[facility]22 [facility] History of tobacco use Cigarette Smoker [facility] Start: 10-31-2022 Tobacco use and exposure Smoke less tobacco non-user [facility] Start: 11-06-2022 End: 07-03-2024 Alcohol intake Current drinker of alcohol (finding) [facility] Start: 10-31-2022 Alcohol Comment occ. [facility] Start: 2001 Sex Assigned At Not on file [facility] Start: 01-30-2023 End: 05-16-2024 History of Social function [facility] Start: 01-30-2023 End: 05-16-2024 Tobacco use panel [facility] Adult Depression Scr eening Assessment 4 [facility] Clinical Notes 10-31-2022 to 08-29-2024 Telephone Encounter - Dolly Sutherland - 08/29/2024 4:39 PM ESTTelephone Encounter - Dolly Sutherland - 08/29/2024 4:39 PM ESTTelephone Encounter - Greta Llamas MA - 08/22/2024 2:11 PM EST Note Date & Type Note Facility 08-29-2024 Telephone encount er Note No Show Documentation Norberto Schaeffer no showed for an appointment on 08/29/24 with Evelyn Serrato APRN.CNP at 4:00 pm. He was scheduled for 2 mo f/u anxiety. I called and was unable to speak with the patient regarding his missed appointment. Norberto did not state the reason that he missed his appointment was because he did not answer phone call . Resources discussed/offered to patient: left message to reschedule No show determined to be fault of patient: Yes This is the patients first no show in the last 12 months. Patient was rescheduled for NA. Letter mailed : Yes Is this the Third or Fourth No Show? No Dolly Sutherland August 29, 2024 4:41 PM [facility] 08-29-2024 Miscellaneous Notes Formattin g of this note might be different from the original. No Show Documentation Norberto Schaeffer no showed for an appointment on 08/29/24 with Evelyn Serrato APRN.CNP at 4:00 pm. He was scheduled for 2 mo f/u anxiety. I called and was unable to speak with the patient regarding his missed appointment. Norberto did not state the reason that he missed his appointment was because he did not answer phone call . Resources discussed/offered to patient: left message to reschedule No show determined to be fault of patient: Yes This is the patients first no show in the last 12 months. Patient was rescheduled for NA. Letter mailed : Yes Is this the Third or Fourth No Show? No Dolly Sutherland August 29, 2024 4:41 PM documented in this encounter [facility] 08-22-2024 Telephone encount er Note pharmacy electronically requesting refills as follows: Last seen 06/28/24 . Last refill 06/30/24 . Requested Prescriptions Pending Prescriptions Disp Refills FLUoxetine (PROZAC) 10 mg capsule [Pharmacy Med Name: fluoxetine 10 mg capsule] 49 capsule 1 Sig: TAKE 1 CAPSULE BY MOUTH ONCE DAILY FOR 7 DAYS THEN TAKE 2 CAPSULES BY MOUTH ONCE DAILY FOR 21 DAYS Please review and advise. Greta Llamas MA [facility] 08-22-2024 Miscellaneous Notes Formattin g of this note is different from the original. pharmacy electronically requesting refills as follows: Last seen 06/28/24 . Last refill 06/30/24 . Requested Prescriptions Pending Prescriptions Disp Refills FLUoxetine (PROZAC) 10 mg capsule [Pharmacy Med Name: fluoxetine 10 mg capsule] 49 capsule 1 Sig: TAKE 1 CAPSULE BY MOUTH ONCE DAILY FOR 7 DAYS THEN TAKE 2 CAPSULES BY MOUTH ONCE DAILY FOR 21 DAYS Please review and advise. Greta Llamas MA documented in this encounter [facility] 06-28-2024 Note HNO ID: [id number] Author: EVELYN SERRATO APRN.COMBINE INSPECTOR Service: ? Author Type: Nurse Practitioner Type: Progress Notes Filed: 07/03/2024 23:53 Note Text: [facility] Norberto Pepper Schaeffer is a 24 year old male here today for follow-up depression, anxiety. I reviewed past medical, surgical, social, and family histories today and updated chart. Allergies, chronic medications, and supplements were also reviewed. HPI Having some conflict with relationship Has been with current partner for 3 years She is concerned about his drinking He drinks 1-2 times throughout the work week Drinks 11 % wine cooler 3-4 in one night Will be in a deep sleep He has hid empty containers from partner They have pets and he will leave dog out after he's passed out before He is motivated to quit alcohol completely He realizes he should not drink alcohol while on the depression medication Notices slower thought process after he's been drinking He is still going to work and getting work done He drinks to relieve stress Hasn't been using marijuana as much lately Currently on Prozac 20 mg once a day - feels like its helping overall, especially with the depression Does make him sleepy Takes it around bedtime Not currently in counseling but is thinking about starting it again PAST MEDICAL HISTORY Diagnosis Date Childhood asthma Depression Generalized anxiety disorder Syncope PAST SURGICAL HISTORY Procedure Laterality Date NONE ALLERGIES Patient has no known allergies. MEDICATIONS FLUoxetine (PROZAC) 10 mg capsule Take 1 capsule by mouth once daily for 7 days, THEN 2 capsules once daily for 21 days. hydrOXYzine pamoate (VISTARIL) 25 mg capsule Take 1 capsule by mouth three times a day as needed for anxiety. FAMILY HISTORY Problem Relation Age of Onset Diabetes Mother Drug abuse Father No Known Problems Sister Social History Tobacco Use Smoking status: Every Day Types: Cigarettes Smokeless tobacco: Never Substance Use Topics Alcohol use: Yes Comment: occ. Drug use: Yes Types: Marijuana Review of Systems Constitutional: Negative for appetite change, chills, fatigue, fever and unexpected weight change. HENT: Negative for congestion, ear pain, rhinorrhea and sore throat. Eyes: Negative for pain, discharge, itching and visual disturbance. Respiratory: Negative for cough, shortness of breath and wheezing. Cardiovascular: Negative for chest pain, palpitations and leg swelling. Gastrointestinal: Negative for abdominal pain, constipation, diarrhea, nausea and vomiting. Genitourinary: Negative for difficulty urinating. Musculoskeletal: Negative for arthralgias. Skin: Negative for rash. Neurological: Negative for dizziness, tremors, weakness and headaches. Psychiatric/Behavioral: Positive for dysphoric mood. Negative for sleep disturbance. The patient is nervous/anxious. Objective BP 122/70 Pulse 80 Temp 98.6 Ht 6' 2 (1.88m) Wt 200 lb (90.7kg) SpO2 99% BMI 25.67 kg/(m2). Physical Exam HENT: Head: Normocephalic and atraumatic. Eyes: Conjunctiva/sclera: Conjunctivae normal. Pupils: Pupils are equal, round, and reactive to light. Cardiovascular: Rate and Rhythm: Normal rate and regular rhythm. Pulses: Normal pulses. Heart sounds: Normal heart sounds. Pulmonary: Effort: Pulmonary effort is normal. Breath sounds: Normal breath sounds. Musculoskeletal: Cervical back: Normal range of motion and neck supple. Lymphadenopathy: Cervical: No cervical adenopathy. Skin: General: Skin is warm and dry. Neurological: General: No focal deficit present. Mental Status: He is alert and oriented to person, place, and time. Cranial Nerves: No cranial nerve deficit. Sensory: Sensation is intact. Motor: Motor function is intact. Coordination: Coordination is intact. Psychiatric: Attention and Perception: Attention and perception normal. Mood and Affect: Affect normal. Mood is depressed. Mood is not anxious. Affect is not labile or inappropriate. Speech: Speech normal. Behavior: Behavior normal. Behavior is not agitated. Thought Content: Thought content normal. Thought content does not include suicidal ideation. Cognition and Memory: Cognition normal. Judgment: Judgment normal. Judgment is not impulsive. 03/11/2023 05/17/2024 06/28/2024 PHQ-9 Score 5 6 6 (0-4) minimal depression, (5-9) mild depression, (10-14) moderate depression, (15-19) moderately severe depression, (20-27) severe depression 12/05/2022 03/11/2023 06/28/2024 HALINA - 7 SCORES Score 8 13 10 (0-4) minimal anxiety, (5-9) mild anxiety, (10-14) moderate anxiety, (15-21) severe anxiety ASSESSMENT/PLAN: 1. Current mild episode of major depressive disorder without prior episode (HCC) - ICD9: 296.21, ICD10: F32.0 (primary diagnosis) Encouraged patient to reduce/stop drinkig alcohol Referral for counseling Continue prozac 20 mg daily - CONSULT TO PSYCHOL (more content not included)... [facility] 06-28-2024 History of Presen t illness Narrative Subjective Norberto Schaeffer is a 24 year old male here today for follow-up depression, anxiety. I reviewed past medical, surgical, social, and family histories today and updated chart. Allergies, chronic medications, and supplements were also reviewed. HPI Having some conflict with relationship Has been with current partner for 3 years She is concerned about his drinking He drinks 1-2 times throughout the work week Drinks 11 % wine cooler 3-4 in one night Will be in a deep sleep He has hid empty containers from partner They have pets and he will leave dog out after he's passed out before He is motivated to quit alcohol completely He realizes he should not drink alcohol while on the depression medication Notices slower thought process after he's been drinking He is still going to work and getting work done He drinks to relieve stress Hasn't been using marijuana as much lately Currently on Prozac 20 mg once a day - feels like its helping overall, especially with the depression Does make him sleepy Takes it around bedtime Not currently in counseling but is thinking about starting it again PAST MEDICAL HISTORY Diagnosis Date Childhood asthma Depression Generalized anxiety disorder Syncope PAST SURGICAL HISTORY Procedure Laterality Date NONE ALLERGIES Patient has no known allergies. MEDICATIONS FLUoxetine (PROZAC) 10 mg capsule Take 1 capsule by mouth once daily for 7 days, THEN 2 capsules once daily for 21 days. hydrOXYzine pamoate (VISTARIL) 25 mg capsule Take 1 capsule by mouth three times a day as needed for anxiety. FAMILY HISTORY Problem Relation Age of Onset Diabetes Mother Drug abuse Father No Known Problems Sister Social History Tobacco Use Smoking status: Every Day Types: Cigarettes Smokeless tobacco: Never Substance Use Topics Alcohol use: Yes Comment: occ. Drug use: Yes Types: Marijuana Review of Systems Constitutional: Negative for appetite change, chills, fatigue, fever and unexpected weight change. HENT: Negative for congestion, ear pain, rhinorrhea and sore throat. Eyes: Negative for pain, discharge, itching and visual disturbance. Respiratory: Negative for cough, shortness of breath and wheezing. Cardiovascular: Negative for chest pain, palpitations and leg swelling. Gastrointestinal: Negative for abdominal pain, constipation, diarrhea, nausea and vomiting. Genitourinary: Negative for difficulty urinating. Musculoskeletal: Negative for arthralgias. Skin: Negative for rash. Neurological: Negative for dizziness, tremors, weakness and headaches. Psychiatric/Behavioral: Positive for dysphoric mood. Negative for sleep disturbance. The patient is nervous/anxious. Objective BP 122/70 Pulse 80 Temp 98.6 Ht 6' 2 (1.88m) Wt 200 lb (90.7kg) SpO2 99% BMI 25.67 kg/(m^2). Physical Exam HENT: Head: Normocephalic and atraumatic. Eyes: Conjunctiva/sclera: Conjunctivae normal. Pupils: Pupils are equal, round, and reactive to light. Cardiovascular: Rate and Rhythm: Normal rate and regular rhythm. Pulses: Normal pulses. Heart sounds: Normal heart sounds. Pulmonary: Effort: Pulmonary effort is normal. Breath sounds: Normal breath sounds. Musculoskeletal: Cervical back: Normal range of motion and neck supple. Lymphadenopathy: Cervical: No cervical adenopathy. Skin: General: Skin is warm and dry. Neurological: General: No focal deficit present. Mental Status: He is alert and oriented to person, place, and time. Cranial Nerves: No cranial nerve deficit. Sensory: Sensation is intact. Motor: Motor function is intact. Coordination: Coordination is intact. Psychiatric: Attention and Perception: Attention and perception normal. Mood and Affect: Affect normal. Mood is depressed. Mood is not anxious. Affect is not labile or inappropriate. Speech: Speech normal. Behavior: Behavior normal. Behavior is not agitated. Thought Content: Thought content normal. Thought content does not include suicidal ideation. Cognition and Memory: Cognition normal. Judgment: Judgment normal. Judgment is not impulsive. 03/11/2023 05/17/2024 06/28/2024 PHQ-9 Score 5 6 6 (0-4) minimal depression, (5-9) mild depression, (10-14) moderate depression, (15-19) moderately severe depression, (20-27) severe depression 12/05/2022 03/11/2023 06/28/2024 HALINA - 7 SCORES Score 8 13 10 (0-4) minimal anxiety, (5-9) mild anxiety, (10-14) moderate anxiety, (15-21) severe anxiety ASSESSMENT/PLAN: 1. Current mild episode of major depressive disorder without prior episode (HCC) - ICD9: 296.21, ICD10: F32.0 (primary diagnosis) Encouraged patient to reduce/stop drinkig alcohol Referral for counseling Continue prozac 20 mg daily - CONSULT TO PSYCHOLOGY 2. HALINA (generalized anxiety disorder) - ICD9: 300.02, ICD10: F41.1 Encouraged patient to reduce/stop drinkig alcohol Referral for counseling Continue prozac 20 mg daily, hydroxyzine as needed - CONSULT TO PSYCHOLOGY FU 2 months Evelyn Serrato APRN.COMBINE INSPECTOR documented in this encounter [facility] 05-13-2024 Note HNO ID: [id number] Author: EVELYN SERRATO APRN.COMBINE INSPECTOR Service: ? Author Type: Nurse Practitioner Type: Progress Notes Filed: 05/16/2024 23:03 Note Text: Jillian Schaeffer is a 24 year old male here today for depression follow-up. I reviewed past medical, surgical, social, and family histories today and updated chart. Allergies, chronic medications, and supplements were also reviewed. HPI Anxiety and depression symptoms have worsened since his last visit Yesterday was driving to work and felt so dizzy thought he would pass out Harder to go out and do things Hard time being public and socializing with other Having panic attacks - chest gets heavy, SOB, hot, uneasy feeling On occasion Comes and goes Comes out of nowhere a lot of times Sleep - sleeping okay, not waking up at night, falls asleep okay This past week went to bed at 9:30, usually goes to bed at 10:30 [place] like didn't rest at all - usually happens if he goes to bed earlier He was on medication in the past - lexapro, then zoloft Made him feel slightly worse over time PAST MEDICAL HISTORY No date: Childhood asthma No date: Depression No date: Generalized anxiety disorder No date: Syncope PAST SURGICAL HISTORY No date: NONE ALLERGIES Patient has no known allergies. MEDICATIONS No prescriptions on file. FAMILY HISTORY Problem Relation Age of Onset Diabetes Mother Drug abuse Father No Known Problems Sister Social History Tobacco Use Smoking status: Every Day Types: Cigarettes Smokeless tobacco: Never Substance Use Topics Alcohol use: Yes Comment: occ. Drug use: Yes Types: Marijuana Review of Systems Constitutional: Negative for appetite change, chills, fatigue, fever and unexpected weight change. HENT: Negative for congestion, ear pain, rhinorrhea and sore throat. Eyes: Negative for pain, discharge, itching and visual disturbance. Respiratory: Negative for cough, shortness of breath and wheezing. Cardiovascular: Negative for chest pain, palpitations and leg swelling. Gastrointestinal: Negative for abdominal pain, constipation, diarrhea, nausea and vomiting. Genitourinary: Negative for difficulty urinating. Musculoskeletal: Negative for arthralgias. Skin: Negative for rash. Neurological: Negative for dizziness, tremors, weakness and headaches. Psychiatric/Behavioral: Positive for dysphoric mood. Negative for sleep disturbance. The patient is nervous/anxious. Objective BP 126/76 Pulse 71 Temp 98 Ht 6' 2 (1.88m) Wt 203 lb (92.1kg) SpO2 10% BMI 26.05 kg/(m2). Physical Exam HENT: Head: Normocephalic and atraumatic. Eyes: Conjunctiva/sclera: Conjunctivae normal. Pupils: Pupils are equal, round, and reactive to light. Cardiovascular: Rate and Rhythm: Normal rate and regular rhythm. Pulses: Normal pulses. Heart sounds: Normal heart sounds. No murmur heard. Pulmonary: Effort: Pulmonary effort is normal. No respiratory distress. Breath sounds: Normal breath sounds. Abdominal: General: Bowel sounds are normal. There is no distension. Palpations: Abdomen is soft. There is no mass. Tenderness: There is no abdominal tenderness. Musculoskeletal: General: No tenderness. Normal range of motion. Cervical back: Normal range of motion and neck supple. Lymphadenopathy: Cervical: No cervical adenopathy. Skin: General: Skin is warm and dry. Findings: No rash. Neurological: General: No focal deficit present. Mental Status: He is alert and oriented to person, place, and time. Cranial Nerves: No cranial nerve deficit. Sensory: Sensation is intact. Motor: Motor function is intact. Coordination: Coordination is intact. Coordination normal. Deep Tendon Reflexes: Reflexes are normal and symmetric. Psychiatric: Attention and Perception: Attention and perception normal. Mood and Affect: Affect normal. Mood is depressed. Mood is not anxious. Affect is not labile or inappropriate. Speech: Speech normal. Behavior: Behavior normal. Behavior is not agitated. Thought Content: Thought content normal. Thought content does not include suicidal ideation. Cognition and Memory: Cognition normal. Judgment: Judgment normal. Judgment is not impulsive. 12/05/2022 01/30/2023 03/11/2023 PHQ-9 Score 7 9 5 (0-4) minimal depression, (5-9) mild depression, (10-14) moderate depression, (15-19) moderately severe depression, (20-27) severe depression 10/31/2022 12/05/2022 03/11/2023 HALINA - 7 SCORES Score 14 8 13 (0-4) minimal anxiety, (5-9) mild anxiety, (10-14) moderate anxiety, (15-21) severe anxiety ASSESSMENT/PLAN: 1. Current mild episode of major depressive disorder without prior episode (HCC) - ICD9: 296.21, ICD10: F32.0 (primary diagnosis) Start fluoxetine 10 mg daily, hydroxyzine as needed for sleep/anxiety - FLUOXETINE 10 MG CAPSULE - HYDROXYZINE PAMOATE 25 MG CAPSULE - CONSULT TO PSYCHOLOGY 2. HALINA (generalized anxiety disord (more content not included)... [facility] 05-13-2024 History of Presen t illness Narrative [facility] Pepper Schaeffer is a 24 year old male here today for depression follow-up. I reviewed past medical, surgical, social, and family histories today and updated chart. Allergies, chronic medications, and supplements were also reviewed. HPI Anxiety and depression symptoms have worsened since his last visit Yesterday was driving to work and felt so dizzy thought he would pass out Harder to go out and do things Hard time being public and socializing with other Having panic attacks - chest gets heavy, SOB, hot, uneasy feeling On occasion Comes and goes Comes out of nowhere a lot of times Sleep - sleeping okay, not waking up at night, falls asleep okay This past week went to bed at 9:30, usually goes to bed at 10:30 [place] like didn't rest at all - usually happens if he goes to bed earlier He was on medication in the past - lexapro, then zoloft Made him feel slightly worse over time PAST MEDICAL HISTORY No date: Childhood asthma No date: Depression No date: Generalized anxiety disorder No date: Syncope PAST SURGICAL HISTORY No date: NONE ALLERGIES Patient has no known allergies. MEDICATIONS No prescriptions on file. FAMILY HISTORY Problem Relation Age of Onset Diabetes Mother Drug abuse Father No Known Problems Sister Social History Tobacco Use Smoking status: Every Day Types: Cigarettes Smokeless tobacco: Never Substance Use Topics Alcohol use: Yes Comment: occ. Drug use: Yes Types: Marijuana Review of Systems Constitutional: Negative for appetite change, chills, fatigue, fever and unexpected weight change. HENT: Negative for congestion, ear pain, rhinorrhea and sore throat. Eyes: Negative for pain, discharge, itching and visual disturbance. Respiratory: Negative for cough, shortness of breath and wheezing. Cardiovascular: Negative for chest pain, palpitations and leg swelling. Gastrointestinal: Negative for abdominal pain, constipation, diarrhea, nausea and vomiting. Genitourinary: Negative for difficulty urinating. Musculoskeletal: Negative for arthralgias. Skin: Negative for rash. Neurological: Negative for dizziness, tremors, weakness and headaches. Psychiatric/Behavioral: Positive for dysphoric mood. Negative for sleep disturbance. The patient is nervous/anxious. Objective BP 126/76 Pulse 71 Temp 98 Ht 6' 2 (1.88m) Wt 203 lb (92.1kg) SpO2 10% BMI 26.05 kg/(m^2). Physical Exam HENT: Head: Normocephalic and atraumatic. Eyes: Conjunctiva/sclera: Conjunctivae normal. Pupils: Pupils are equal, round, and reactive to light. Cardiovascular: Rate and Rhythm: Normal rate and regular rhythm. Pulses: Normal pulses. Heart sounds: Normal heart sounds. No murmur heard. Pulmonary: Effort: Pulmonary effort is normal. No respiratory distress. Breath sounds: Normal breath sounds. Abdominal: General: Bowel sounds are normal. There is no distension. Palpations: Abdomen is soft. There is no mass. Tenderness: There is no abdominal tenderness. Musculoskeletal: General: No tenderness. Normal range of motion. Cervical back: Normal range of motion and neck supple. Lymphadenopathy: Cervical: No cervical adenopathy. Skin: General: Skin is warm and dry. Findings: No rash. Neurological: General: No focal deficit present. Mental Status: He is alert and oriented to person, place, and time. Cranial Nerves: No cranial nerve deficit. Sensory: Sensation is intact. Motor: Motor function is intact. Coordination: Coordination is intact. Coordination normal. Deep Tendon Reflexes: Reflexes are normal and symmetric. Psychiatric: Attention and Perception: Attention and perception normal. Mood and Affect: Affect normal. Mood is depressed. Mood is not anxious. Affect is not labile or inappropriate. Speech: Speech normal. Behavior: Behavior normal. Behavior is not agitated. Thought Content: Thought content normal. Thought content does not include suicidal ideation. Cognition and Memory: Cognition normal. Judgment: Judgment normal. Judgment is not impulsive. 12/05/2022 01/30/2023 03/11/2023 PHQ-9 Score 7 9 5 (0-4) minimal depression, (5-9) mild depression, (10-14) moderate depression, (15-19) moderately severe depression, (20-27) severe depression 10/31/2022 12/05/2022 03/11/2023 HALINA - 7 SCORES Score 14 8 13 (0-4) minimal anxiety, (5-9) mild anxiety, (10-14) moderate anxiety, (15-21) severe anxiety ASSESSMENT/PLAN: 1. Current mild episode of major depressive disorder without prior episode (HCC) - ICD9: 296.21, ICD10: F32.0 (primary diagnosis) Start fluoxetine 10 mg daily, hydroxyzine as needed for sleep/anxiety - FLUOXETINE 10 MG CAPSULE - HYDROXYZINE PAMOATE 25 MG CAPSULE - CONSULT TO PSYCHOLOGY 2. HALINA (generalized anxiety disorder) - ICD9: 300.02, ICD10: F41.1 Start fluoxetine 10 mg daily, hydroxyzine as needed for sleep/anxiety - FLUOXETINE 10 MG CAPSULE - HYDROXYZINE PAMOATE 25 MG CAPSULE - CONSULT TO PSYCHOLOGY FU 6 weeks Evelyn Serrato APRN.COMBINE INSPECTOR documented in this encounter [facility] 03-10-2023 History of Presen t illness Narrative This note was created using [employer]. Subjective Norberto Schaeffer is a 22 year old male here today for depression follow-up. I reviewed past medical, surgical, social, and family histories today and updated chart. Allergies, chronic medications, and supplements were also reviewed. No motivation or energy Was having stomach pain and drowsiness He weaned himself off the zoloft Stopped it 1 week ago He would like to try and see how he does without it Has been fighting a little with girlfriend, not really fighting just having disagreements He doesn't feel like he fits in with her family, doesn't feel welcomed Work is okay, likes the work he does, does not like some of the people he works with PAST MEDICAL HISTORY Diagnosis Date Childhood asthma Depression Generalized anxiety disorder Syncope PAST SURGICAL HISTORY Procedure Laterality Date NONE ALLERGIES Patient has no known allergies. MEDICATIONS sertraline (ZOLOFT) 25 mg tablet Take 1 tablet by mouth once daily for 7 days, THEN 2 tablets once daily for 21 days. FAMILY HISTORY Problem Relation Age of Onset Diabetes Mother Drug abuse Father No Known Problems Sister Social History Tobacco Use Smoking status: Every Day Types: Cigarettes Smokeless tobacco: Never Substance Use Topics Alcohol use: Yes Comment: occ. Drug use: Yes Types: Marijuana Review of Systems Constitutional: Negative for appetite change, chills, fatigue, fever and unexpected weight change. HENT: Negative for congestion, ear pain, rhinorrhea and sore throat. Eyes: Negative for pain, discharge, itching and visual disturbance. Respiratory: Negative for cough, shortness of breath and wheezing. Cardiovascular: Negative for chest pain, palpitations and leg swelling. Gastrointestinal: Negative for abdominal pain, constipation, diarrhea, nausea and vomiting. Genitourinary: Negative for difficulty urinating. Musculoskeletal: Negative for arthralgias. Skin: Negative for rash. Neurological: Negative for dizziness, tremors, weakness and headaches. Psychiatric/Behavioral: Positive for dysphoric mood. Negative for sleep disturbance. The patient is nervous/anxious. Objective BP 112/60 Pulse 63 Temp 36.7 C (98 F) Resp 19 Ht 188 cm (6' 2) Wt 83.5 kg (184 lb) SpO2 99% BMI 23.62 kg/m Physical Exam Constitutional: Appearance: Normal appearance. He is normal weight. Pulmonary: Effort: Pulmonary effort is normal. Neurological: Mental Status: He is alert and oriented to person, place, and time. Psychiatric: Attention and Perception: Attention and perception normal. Mood and Affect: Mood is depressed. Speech: Speech normal. Behavior: Behavior normal. Behavior is cooperative. Thought Content: Thought content does not include suicidal ideation. PHQ-9 12/05/2022 01/30/2023 03/11/2023 Score 7 9 5 (0-4) minimal depression, (5-9) mild depression, (10-14) moderate depression, (15-19) moderately severe depression, (20-27) severe depression HALINA - 7 SCORES 10/31/2022 12/05/2022 03/11/2023 HALINA-7 Score 14 8 13 (0-4) minimal anxiety, (5-9) mild anxiety, (10-14) moderate anxiety, (15-21) severe anxiety ASSESSMENT/PLAN: 1. Current mild episode of major depressive disorder without prior episode (HCC) - ICD9: 296.21, ICD10: F32.0 (primary diagnosis) Encouraged patient to get labs Will monitor off medications for now FU as needed and yearly - CBC - COMP METABOLIC PANEL - TSH BLD 2. HALINA (generalized anxiety disorder) - ICD9: 300.02, ICD10: F41.1 - CBC - COMP METABOLIC PANEL - TSH BLD 3. Screening for lipid disorders - ICD9: V77.91, ICD10: Z13.220 - LIPID PANEL BASIC 4. Needle phobia - ICD9: 300.29, ICD10: F40.298 May use lidocaine cream and alprazolam prior to lab draw - LIDOCAINE 4 % TOPICAL CREAM - ALPRAZOLAM 0.5 MG TABLET Evelyn Serrato APRN.COMBINE INSPECTOR documented in this encounter [facility] 12-05-2022 History of Presen t illness Narrative This note was created using [employer]. Subjective Norberto Pepper Schaeffer is a 22 year old male here today for depression/anxiety follow-up. I reviewed past medical, surgical, social, and family histories today and updated chart. Allergies, chronic medications, and supplements were also reviewed. Overall he likes the lexapro Having less bad days overall but does feel some of these bad days are worse He is talking to a therapist, going well Seeing them every 2 weeks [facility] in [place] Getting through his day to day okay Got a job promotion, but is alone most of the day and he's in his own thoughts Going to take a trip to [place] soon with girlfriend Going to get a ferret PAST MEDICAL HISTORY Diagnosis Date Childhood asthma Syncope PAST SURGICAL HISTORY Procedure Laterality Date NONE ALLERGIES Patient has no known allergies. MEDICATIONS escitalopram oxalate (LEXAPRO) 10 mg tablet Take 1 tablet by mouth once daily. FAMILY HISTORY Problem Relation Age of Onset Diabetes Mother Drug abuse Father No Known Problems Sister Social History Tobacco Use Smoking status: Every Day Types: Cigarettes Smokeless tobacco: Never Substance Use Topics Alcohol use: Yes Comment: occ. Drug use: Yes Types: Marijuana Review of Systems Constitutional: Negative for appetite change, chills, fatigue, fever and unexpected weight change. HENT: Negative for congestion, ear pain, rhinorrhea and sore throat. Eyes: Negative for pain, discharge, itching and visual disturbance. Respiratory: Negative for cough, shortness of breath and wheezing. Cardiovascular: Negative for chest pain, palpitations and leg swelling. Gastrointestinal: Negative for abdominal pain, constipation, diarrhea, nausea and vomiting. Skin: Negative for rash. Neurological: Negative for dizziness, tremors, weakness and headaches. Psychiatric/Behavioral: Positive for dysphoric mood and sleep disturbance. The patient is nervous/anxious. Objective BP 110/60 Pulse 65 Temp 36.7 C (98 F) Ht 188 cm (6' 2) Wt 80.3 kg (177 lb) SpO2 99% BMI 22.73 kg/m Physical Exam HENT: Head: Normocephalic and atraumatic. Eyes: Conjunctiva/sclera: Conjunctivae normal. Pupils: Pupils are equal, round, and reactive to light. Pulmonary: Effort: Pulmonary effort is normal. Musculoskeletal: Cervical back: Normal range of motion. Skin: General: Skin is warm and dry. Neurological: General: No focal deficit present. Mental Status: He is alert and oriented to person, place, and time. Cranial Nerves: No cranial nerve deficit. Sensory: Sensation is intact. Motor: Motor function is intact. Coordination: Coordination is intact. Psychiatric: Attention and Perception: Attention and perception normal. Mood and Affect: Mood and affect normal. Mood is not anxious or depressed. Affect is not labile or inappropriate. Speech: Speech normal. Behavior: Behavior normal. Behavior is not agitated. Thought Content: Thought content normal. Thought content does not include suicidal ideation. Cognition and Memory: Cognition normal. Judgment: Judgment normal. Judgment is not impulsive. PHQ-9 10/31/2022 12/05/2022 Score 8 7 (0-4) minimal depression, (5-9) mild depression, (10-14) moderate depression, (15-19) moderately severe depression, (20-27) severe depression HALINA - 7 SCORES 10/31/2022 12/05/2022 HALINA-7 Score 14 8 (0-4) minimal anxiety, (5-9) mild anxiety, (10-14) moderate anxiety, (15-21) severe anxiety ASSESSMENT/PLAN: 1. Current mild episode of major depressive disorder without prior episode (HCC) - ICD9: 296.21, ICD10: F32.0 (primary diagnosis) Increase lexapro to 20 mg daily Continue counseling FU in 6-8 weeks 2. HALINA (generalized anxiety disorder) - ICD9: 300.02, ICD10: F41.1 Increase lexapro to 20 mg daily Continue counseling FU in 6-8 weeks Evelyn Serrato APRN.COMBINE INSPECTOR documented in this encounter [facility] 10-31-2022 History of Presen t illness Narrative This note was created using [employer]. [facility] Pepper Schaeffer is a 22 year old male here today for anxiety, establish care. I reviewed past medical, surgical, social, and family histories today and updated chart. Allergies, chronic medications, and supplements were also reviewed. Anxiety, depression - started within the last year Has noticed mental health in decline from spring time moving into winter He is seeing a counselor - helps a lot but doesn't last, head will be clearer Mood is better in the summer, but not even looking forward to the summer Worried about work, paying pills Has anxiety, over thinking Wants to learn out to control it He is wondering if a medication might help Diet - under eating, some days just not in the mood to eat He works time checker - metal work/repair welder Exercise - will lift weights about every other day Sleep - struggling, sleeping in and late to work, stays up to spend time with girlfriend. Falls asleep easily. Sometimes will wake up 1-2 hours before alarm. Gets 3-5 hours sleep per night Doesn't have happy childhood memories, maybe some past trauma, not sure No physical abuse Mother did pills and makes him sad, she's doing better now Father last year from accidental overdose fentanyl, last saw his dad age 9 Has a younger sister - good relationship Review of Systems Constitutional: Positive for fatigue and fever (100.9 yesterday). Negative for appetite change, chills and unexpected weight change. HENT: Positive for congestion, rhinorrhea and sore throat. Negative for ear pain and hearing loss. Sick with runny nose, congestion, sore throat Eyes: Negative for pain, discharge, itching and visual disturbance. Respiratory: Positive for cough (here and there) and shortness of breath (with more strenuous activities). Negative for wheezing. Vapes - since age 17, nicotine Wants to quit Hx asthma - was on a pill, no inhalers Has been off meds since age 13 Cardiovascular: Positive for chest pain (when he hit his vape). Negative for palpitations and leg swelling. Gastrointestinal: Positive for abdominal pain (relates to being sick, a little hungry). Negative for constipation, diarrhea, nausea and vomiting. Genitourinary: Negative for difficulty urinating. Musculoskeletal: Positive for arthralgias (Knees are hurting, pops at times). Negative for myalgias. Skin: Negative for rash. Neurological: Negative for dizziness, tremors, seizures, weakness and headaches. Has had syncopal episodes - around age 13 - got dizzy and would pass out, told he has an enlarged vein in his brain - was getting MRI's done and eventually told he was okay Psychiatric/Behavioral: Positive for dysphoric mood and sleep disturbance. The patient is nervous/anxious. Objective BP 120/70 Pulse 80 Temp 36.9 C (98.5 F) Ht 188 cm (6' 2) Wt 78.9 kg (174 lb) SpO2 98% BMI 22.34 kg/m Physical Exam HENT: Head: Normocephalic and atraumatic. Eyes: Conjunctiva/sclera: Conjunctivae normal. Pupils: Pupils are equal, round, and reactive to light. Cardiovascular: Rate and Rhythm: Normal rate and regular rhythm. Pulses: Normal pulses. Heart sounds: Normal heart sounds. Pulmonary: Effort: Pulmonary effort is normal. Breath sounds: Normal breath sounds. Musculoskeletal: Cervical back: Normal range of motion and neck supple. Lymphadenopathy: Cervical: No cervical adenopathy. Skin: General: Skin is warm and dry. Neurological: General: No focal deficit present. Mental Status: He is alert and oriented to person, place, and time. Cranial Nerves: No cranial nerve deficit. Sensory: Sensation is intact. Motor: Motor function is intact. Coordination: Coordination is intact. Psychiatric: Attention and Perception: Attention and perception normal. Mood and Affect: Affect normal. Mood is depressed. Mood is not anxious. Affect is not labile or inappropriate. Speech: Speech normal. Behavior: Behavior normal. Behavior is not agitated. Thought Content: Thought content normal. Thought content does not include suicidal ideation. Cognition and Memory: Cognition normal. Judgment: Judgment normal. Judgment is not impulsive. PHQ-9 10/31/2022 Score 8 (0-4) minimal depression, (5-9) mild depression, (10-14) moderate depression, (15-19) moderately severe depression, (20-27) severe depression HALINA - 7 SCORES 10/31/2022 HALINA-7 Score 14 (0-4) minimal anxiety, (5-9) mild anxiety, (10-14) moderate anxiety, (15-21) severe anxiety ASSESSMENT/PLAN: 1. Current mild episode of major depressive disorder without prior episode (HCC) - ICD9: 296.21, ICD10: F32.0 (primary diagnosis) Start lexapro 10 mg daily. Discussed medication action, dosing, side effects, risks, and benefits. Patient verbalizes understanding. Check labs FU 6-8 weeks - CBC - COMP METABOLIC PANEL - TSH BLD - VITAMIN D 25 HYDROXY - ESCITALOPRAM 10 MG TABLET 2. HALINA (generalized anxiety disorder) - ICD9: 300.02, ICD10: F41.1 Start lexapro 10 mg daily. Discussed medication action, dosing, side effects, risks, and benefits. Patient verbalizes understanding. Check labs FU 6-8 weeks - CBC - COMP METABOLIC PANEL - TSH BLD - ESCITALOPRAM 10 MG TABLET 3. Upper respiratory tract infection, unspecified type - ICD9: 465.9, ICD10: J06.9 - Discussed viral etiology and rationale for treatment. - Symptomatic treatment with prn analgesia - Supportive care with fluids and rest Evelyn Serrato APRN.CNP documented in this encounter [facility] Evaluation note Diagnosis Current mild episode of major depressive disorder without prior episode (HCC)- Primary HALINA (generalized anxiety disorder) Generalized anxiety disorder Upper respiratory tract infection, unspecified type [facility] Current mild episode of major depressive disorder without prior episode (HCC)- Primary HALINA (generalized anxiety disorder) Generalized anxiety disorder [facility] Current mild episode of major depressive disorder without prior episode (HCC)- Primary HALINA (generalized anxiety disorder) Generalized anxiety disorder Screening for lipid disorders Needle phobia Other isolated or specific phobias [facility] Current mild episode of major depressive disorder without prior episode (HCC)- Primary HALINA (generalized anxiety disorder) Generalized anxiety disorder [facility] Current mild episode of major depressive disorder without prior episode (HCC)- Primary HALINA (generalized anxiety disorder) Generalized anxiety disorder [facility] Current mild episode of major depressive disorder without prior episode (HCC) HALINA (generalized anxiety disorder) Generalized anxiety disorder documented in this encounter [facility] Summary Purpose Family History No Family History Records FoundNo Family History Records FoundNo Family History Records Found Advance Directives No Advanced Directives Records FoundNo Advanced Directives Records FoundNo Advanced Directives Records Found Reason for Referral Specialty Diagnoses / Procedures Referred By Contac t Referred To Contact Psychology Diagnoses Current mild episode of major depressive disorder without prior episode (HCC) HALINA (generalized anxiety disorder) Procedures CONSULT TO PSYCHOLOGY OFFICE/OUTPATIENT NEW HIGH MDM 60 MINUTES Evelyn Serrato APRN.COMBINE INSPECTOR [address] [place] [address] Referral ID Status Reason Start Date Expiration Date Visits Requested Visits Authorized [id number] Pending Review PCP Requested Referral 05/13/2024 05/13/2025 1 1 Specialty Diagnoses / Procedures Referred By Contac t Referred To Contact Psychology / ADULT PSYCHIATRY Diagnoses Current mild episode of major depressive disorder without prior episode (HCC) HALINA (generalized anxiety disorder) Procedures CONSULT TO PSYCHOLOGY OFFICE/OUTPATIENT [facility] 60 MINUTES Evelyn Serrato, UZMA.COMBINE INSPECTOR [address] [place] [address] Miriam Anderson PSYD [address] [place] [address] Referral ID Status Reason Start Date Expiration Date Visits Requested Visits Authorized [id number] Pending Review PCP Requested Referral 4 06/28/2025 1 1 Additional Source Comments (unrecognized sect ion and content) No Status Records FoundNo Status Records FoundNo Status Records Found INFORMATION SOURCE (unrecogn ized section and content) DATE CREATED AUTHOR 08/09/2020 [facility] DATE CREATED AUTHOR AUTHOR'S ORGANIZ ATION 09/01/2024 [facility] DATE CREATED AUTHOR AUTHOR'S ORGANIZ ATION 02/15/2025 [facility] Source Comments (unrecognize d section and content) In the event this informatio n is protected by the Federal Confidentiality of Alcohol and Drug Abuse Patient Records regulations: The Federal rules restrict any use of the information to criminally investigate or prosecute any alcohol or drug abuse patient.[facility] the event this information is protected by the Federal Confidentiality of Alcohol and Drug Abuse Patient Records regulations: The Federal rules restrict any use of the information to criminally investigate or prosecute any alcohol or drug abuse patient.[facility] the event this information is protected by the Federal Confidentiality of Alcohol and Drug Abuse Patient Records regulations: The Federal rules restrict any use of the information to criminally investigate or prosecute any alcohol or drug abuse patient.[facility] the event this information is protected by the Federal Confidentiality of Alcohol and Drug Abuse Patient Records regulations: The Federal rules restrict any use of the information to criminally investigate or prosecute any alcohol or drug abuse patient.[facility] the event this information is protected by the Federal Confidentiality of Alcohol and Drug Abuse Patient Records regulations: The Federal rules restrict any use of the information to criminally investigate or prosecute any alcohol or drug abuse patient.[facility] the event this information is protected by the Federal Confidentiality of Alcohol and Drug Abuse Patient Records regulations: The Federal rules restrict any use of the information to criminally investigate or prosecute any alcohol or drug abuse patient.[facility] the event this information is protected by the Federal Confidentiality of Alcohol and Drug Abuse Patient Records regulations: The Federal rules restrict any use of the information to criminally investigate or prosecute any alcohol or drug abuse patient.[facility] Reason for Visit (unrecogniz ed section and content) Reason Comments Anxiety Establish Care Reason Comments Depression Requesting medicatio n to be increased. Anxiety Reason Comments Depression Anxiety Reason Comments Depression Reason Comments Depression Anxiety Reason Comments Refill Request Reason Comments No Show Pt no showed for estrellita t on 08/29/24 Care Teams (unrecognized sec tion and content) Office Communication Professor Relationship Specialty Start Date End Date Evelyn Serrato, ADOPTION WORKER.COMBINE INSPECTOR [address], [place] [phone] PCP - General Family Medicine 10/31/22 Office Communication Professor Relationship Specialty Start Date End Date Evelyn Serrato, ADOPTION WORKER.COMBINE INSPECTOR [address] [facility], [place] [phone] PCP - General Family Medicine 10/31/22 Office Communication Professor Relationship Specialty Start Date End Date Evelyn Serrato, ADOPTION WORKER.COMBINE INSPECTOR [address] [facility], [place] [phone] PCP - General Family Medicine 10/31/22 Office Communication Professor Relationship Specialty Start Date End Date Evelyn Serrato, ADOPTION WORKER.COMBINE INSPECTOR [address], [place] [phone] PCP - General Family Medicine 10/31/22 Office Communication Professor Relationship Specialty Start Date End Date Evelyn Serrato, ADOPTION WORKER.COMBINE INSPECTOR [address], [place] [phone] PCP - General Family Medicine 10/31/22 Office Communication Professor Relationship Specialty Start Date End Date Evelyn Serrato ADOPTION WORKER.COMBINE INSPECTOR [address], [place] [phone] PCP - General Family Medicine 10/31/22 Office Communication Professor Relationship Specialty Start Date End Date Evelyn Serrato ADOPTION WORKER.COMBINE INSPECTOR [address], [place] [phone] PCP - General Family Medicine 10/31/22 FOR RECORDS PERTAINING TO PATIENTS WHO ARE OR HAVE BEEN ENROLLED IN A CHEMICAL DEPENDENCY/SUBSTANCEABUSE PROGRAM, SOME INFORMATION MAY BE OMITTED. This clinical summary was aggregated from multiple sources. Caution should be exercised in using it in the provision of clinical care. This summary normalizes information from multiple sources, and as a consequence, information in this document may materially change the coding, format and clinical context of patient data. In addition, data may be omitted in some cases. CLINICAL DECISIONS SHOULD BE BASED ON THE PRIMARY CLINICAL RECORDS. [facility] [employer], [facility]. provides no warranty or guarantee of the accuracy or completeness of information in this document.
--- NOTE | 2025-03-02 21:59 | EDS_ITS ---
HPI History of Present Illness Chief Complaint: Eye Problem Narrative Narrative: Foreign body sensation in right eye earlier this afternoon and working under his car, when he fell please arrest, his eye. Does not wear glasses or contacts. No blurry vision. No loss of vision. Was not wearing safety glasses. Cannot recall his last eye exam. [facility] Medical History Tobacco use disorder Panic disorder HALINA (generalized anxiety disorder) Home Medications ?Medication ?Instructions ?Recorded ?Last Taken ?Type fluoxetine 20 mg capsule 20 mg PO DAILY #90 caps 06/07 Unknown Rx hydroxyzine HCl 10 mg tablet 10 mg PO TID PRN anxiety #90 tabs 08/22/24 Unknown Rx Allergy/AdvReac Type Severity Reaction Status Date / Time No Known Allergies Allergy Verified 03/02/25 20:01 Social History household members: family housing: house Smoking Status: Never smoker ROS ROS ED Constitutional Constitutional ED: Denies fever(s) Eyes Eyes: Reports other Details: Foreign body sensation right eye ; Denies blurry vision or change in vision Cardiovascular Cardiovascular: Denies chest pain Respiratory/Chest Respiratory/Chest: Denies cough Gastrointestinal Gastrointestinal: Denies diarrhea or vomiting Musculoskeletal Musculoskeletal: Denies none Integumentary Denies rash or wounds Neurologic Neurologic: Denies weakness EXAM Physical Exam Const Vital Signs: 03/02/25 20:01 Temperature 97.9 F Temperature Source Temporal Pulse Rate 96 Respiratory Rate 16 Blood Pressure 150/82 H Blood Pressure Mean 104 Pulse Ox 100 Oxygen Delivery Method Room Air Positive well nourished and well developed General Appearance ED: well developed HEENT normocephalic and atraumatic Eyes Eyes Narrative: Visual acuity: 20/15 OD, 20/13 OU. Right eye evaluation after tetracaine was still. Eyelid everted moist Q-tip brown along margins no foreign body noted. Gross examination to either noted be a foreign body at 3 o'clock position. Confirmed with slit lamp with foreign body with rust ring. Additional tetracaine, syringe with 1 inch needle at the tip, foreign bodies removed, residual rust ring was noted. Neck full ROM Resp normal respiratory effort and normal air movement Cardio regular rate and regular rhythm GI soft to palpation Extremity normal to inspection and full ROM Neuro oriented x3 Skin no rashes or lesions noted and no wounds MDM MDM MDM Narrative Medical decision making narrative: Interventions / MDM: Differential diagnosis: Corneal foreign body with rust ring Diagnosis considered but do not suspect: No corneal ulcers noted. My EKG interpretation: N/A Imaging independently reviewed and interpreted by myself: N/A External documents reviewed: N/A Test considered but not ordered:N/A ED course: Patient with foreign body 3:00 condition with rust ring. Foreign body removal residual rust ring was noted. Erythromycin was placed in the ED twice a days given ophthalmology follow-up for additional treatment due to the rust ring. All questions were answered. Re-evaluation: stable Disposition discussed with patient/family/significant other: Patient and signi ficant other Case discussed with consulting clinician: N/A This note was generated with [employer] dictation software. It may contain incorrect words, spelling, and punctuation that were not noted in checking the note before signing. Discharge Plan Triage Chief Complaint: Eye Problem ED Provider: Bryant Luevano Dx/Rx/DC Orders Clinical Impression: Acute foreign body of right cornea, Corneal rust ring of right eye Instructions: ED Corneal Foreign Body, Removed, ED RUST RING Prescriptions: No Action fluoxetine 20 mg capsule 20 mg PO DAILY Qty: 90 1RF hydroxyzine HCl 10 mg tablet 10 mg PO TID PRN (Reason: anxiety) Qty: 90 2RF Primary Care Provider: Janine Gloria NP Referrals: Hitesh Jacob MD [Med Staff - Active Staff] - 1 Day Janine Gloria NP, [employer] [Primary Care Provider] - Activity Restrictions/Additional Instructions: Visual acuity 20/15 right, 20/13 both. Corneal foreign body removal with residual rust ring at the 3 o'clock position. Follow-up with ophthalmology for reevaluation and further treatment. Call tomorrow for appointment to be seen. Use antibiotic ointment twice a day. Print Language: Bengali Disposition Disposition: Home, Self Care Discharge Date/Time: 03/02/25 22:05
[2025-03-02] MEDS: Tetracaine 0.5% Ophthalmic Bottle 1 DRP OPHTHALMIC (22:03)
[2025-03-02] MEDS: Erythromycin Base 1 OPTH.TUBE 1 APPLIC RIGHT EYE (22:03)
[2025-03-02] MEDS: Fluorescein 1 MG STRIP 1 STRIP OPHTHALMIC (22:04)
[2025-03-02 22:05] VITALS: BP 138/69; PULSE 77; RESP 18; TEMP 36.6; O2SAT 98
== END 2025-03-02 22:05 | disposition home or self-care (01) ==
PROVIDERS: Emergency Provider Emergency Medicine; PCP Nurse Practitioner Family; Visit Provider Emergency Medicine
DX: T15.01XA Foreign body in cornea, right eye, initial encounter (principal); W44.E9XA Other non-magnetic metal objects entering into or through a natural orifice, initial encounter
CPT/HCPCS: 99284

== ENCOUNTER → 2025-07-18 | Outpatient (CLI) | payer OTHER, SELFPAY ==
[2025-07-18 17:05] LABS: Hematocrit 41.5 % (40-54); Hemoglobin 14.2 g/dL (13.0-16.5); Immature Granulocytes Count 0.070 X10^3/uL (0.0-0.0); Mean Corp Hgb Conc 34.2 g/dL (32-36); Mean Corpuscular Volume 82.5 fL (80-94); Mean Platelet Vol. 8.7 fl (6.2-12.0); NRBC Flagged by Analyzer 0 % (0-5); Platelet Count 272 K/mm3 (150-450); RBC Distribution Width CV 12.4 % (11.6-14.6); RBC Distribution Width SD 37.5 fl (35.1-43.9); Red Blood Count 5.03 M/mm3 (4.6-6.2); White Blood Count 11.2 K/mm3 (4.4-11.0)
[2025-07-18 17:25] LABS: AST(SGOT) 26 U/L (<=37); Alanine Aminotransfer ALT/SGPT 30 U/L (<=46); Albumin, Serum 4.4 g/dL (3.5-5.0); Alkaline Phosphatase 75 U/L (40-129); Anion Gap 13 (5-15); BUN 22 mg/dL (4-19); BUN/Creat Ratio 27.8 RATIO (10-20); Calcium,Total 9.6 mg/dL (7.6-11.0); Carbon Dioxide 23.5 mmol/L (21.0-32.0); Chloride 101 mmol/L (98-108); Globulin 2.2 g/dL (2.2-4.2); Glucose 93 mg/dL (70-99); Potassium 3.7 mmol/L (3.3-5.1)
== END | disposition home or self-care (01) ==
LOC: LAB 16:33
PROVIDERS: PCP Nurse Practitioner Family; Referring Provider Student in an Organized Health Care Education/Training Program; Visit Provider Student in an Organized Health Care Education/Training Program
DX: F41.1 Generalized anxiety disorder (principal); F41.0 Panic disorder [episodic paroxysmal anxiety]
CPT/HCPCS: 36415; 80053; 85025